=== PATIENT | male | born 1985 | race Caucasian/White ===

== ENCOUNTER → 2018-01-03 19:24 | Outpatient (CLI) | payer MEDICAID, SELFPAY | PROVIDERS: Family Provider Student in an Organized Health Care Education/Training Program; PCP Student in an Organized Health Care Education/Training Program; Visit Provider Family Medicine | DX: G47.30 Sleep apnea, unspecified (principal); G47.10 Hypersomnia, unspecified; R53.83 Other fatigue; R06.83 Snoring | CPT/HCPCS: 95810 ==

== ENCOUNTER → 2018-07-30 13:48 | Outpatient (CLI) | payer MEDICAID, SELFPAY ==
--- NOTE | 2018-07-30 13:50 | US_ITS ---
STUDY: SOFT TISSUE ULTRASOUND REASON FOR EXAM: Male, 33 years old. Left neck palpable lump TECHNIQUE: Ultrasound evaluation of the neck soft tissue was performed with real-time and static brumfield-scale imaging. COMPARISON: None. FINDINGS: Images of the left either of the neck along the mandible demonstrate a subcentimeter lymph node. No other abnormality or collection.. US/Head/Neck Soft Tissue IMPRESSION: No mass or collection is noted in the area of concern. Electronically Signed: Drake Hagan DO at 0:01 EST Tel [phone], Service support ,
--- OUTSIDE RECORDS SUMMARY | 2018-11-01 05:10 | XMS RPT_ITS ---
:1985 Author Organization OH[facility] Care Team Providers Name Role Phone JANIS MOJICA (SHANE) Attending Unavailable DANIELLE SPARKS (FEL) Referring Unavailable JANIS MOJICA (PA) Referring Unavailable ZARA SPARKSSSICA (FEL) Referring Unavailable FESCATIE DANIELLE (FEL) Attending Unavailable KRISTI DANIELLE (FEL) Referring Unavailable JANIS MOJICA (SHANE) Attending Unavailable KRISTI DANIELLE (FEL) Attending Unavailable ZARA SPARKSSSICA (FEL) Referring Unavailable LUCIANO AGGARWAL Attending Unavailable JANIS MOJICA (SHANE) Referring Unavailable NATHALIE SHARP (RN) Referring Unavailable Christian Forbes Attending Unavailable Christian Forbes Referring Unavailable Jayme Avina Primary Care Unavailable Luciano Aggarwal Attending Unavailable Jayme Avina Primary Care Unavailable MAGO LASSITER Consulting Unavailable Christian Forbes Attending Unavailable Christian Forbes Referring Unavailable Jayme Avina Primary Care Unavailable PROBLEMS PROBLEMS DATE TYPE CONDITION / CODE ATTENDING STATUS SOURCE 07/06/2018 Active 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, [place]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 / Repository G44.011(ICD-10) 01/11/2018 Active Unknown / NA Active [facility] UNK(Unknown) [place] Repository 05/13/2014 Active Obesity, NA Active [facility] unspecified / [place] E66.9(ICD-10) Repository 01/02/2018 Active Abnormal weight NA Active [facility] gain / [place] R63.5(ICD-10) Repository 12/22/2017 Active Localization-relat NA Active [facility] ed (focal) [place] (partial) Repository symptomatic epilepsy and epileptic syndromes with simple partial seizures, not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, without status epilepticus / G40.109(ICD-10) 12/22/2017 Active Unspecified NA Active [facility] convulsions / [place] R56.9(ICD-10) Repository 12/22/2017 Active Other fatigue / NA Active [facility] R53.83(ICD-10) [place] Repository 12/22/2017 Active Encounter for NA Active [facility] screening for [place] diabetes mellitus Repository / Z13.1(ICD-10) 12/22/2017 Active Encounter for Active [facility] screening for [place] lipoid disorders / Repository Z13.220(ICD-10) PROCEDURES PROCEDURES No Procedure Records FoundRESULTS RESULTS HEAD/NECK SOFT TISSUE Observed: 07/30/2018 Status: F Source: [place] 1:50 PM [facility] REPOSITORY [facility] Imaging Services [address] [place] [id number] Head/Neck Soft Tissue MR#: [id number] Acct: [id number] Name: MARY LEI Rep #: [id number] : 1985 M 33 From: Drake Hagan DO PCP: Jayme Hernandez DO Status: REG CLI Study: Head/Neck Soft Tissue Date of Exam: 07/30/18 Exam# [id number] Ordering Dr: Christian Forbes MD STUDY: SOFT TISSUE ULTRASOUND REASON FOR EXAM: Male, 33 years old. Left neck palpable lump TECHNIQUE: Ultrasound evaluation of the neck soft tissue was performed with real-time and static brumfield-scale imaging. COMPARISON: None. FINDINGS: Images of the left either of the neck along the mandible demonstrate a subcentimeter lymph node. No other abnormality or collection.. US/Head/Neck Soft Tissue IMPRESSION: No mass or collection is noted in the area of concern. Electronically Signed: Drake Hagan DO at 0:01 EST Tel [phone], Service support , CC: Gino Forbes MD; Jayme Hernandez DO Head Well Puller: Signed SARINAN Observed: 07/11/2018 Status: COMPLETED Source: [place] 12:00 AM [facility] REPOSITORY Telephone ([id number]) MARY LEI ([id number]) 1985 M Date Time Provider Department 07/11/18 NATHALIE LOPEZ)[id number] During your visit today, we recorded the following information about you: Nathalie Lopez, MSN, DOMESTIC MAID.SARINA 07/11/2018 10:[address] Sparks: Danielle Lopez ? If 6 months without seizure - sounds good! Thank you! Danielle Last seizure was 11/26/17. Component Latest Ref Rng AND Units 07/06/2018 10Hydroxycarbazepine 3.0 - 35.0 ug/mL 20.5 Will release driving restriction. Called the patient to discuss but there was no answer. Asked him to call the office back to further discuss-forms etc. Nathalie Lopez, MSN, DOMESTIC MAID.SARINA Garcia 07/11/2018 12:48 PM Signed Mary sequeira call. Please call [phone] Rafaela Shah, RN, RN 07/11/2018 1:46 PM Signed Spoke with Mary and provided Dr. Sparks's recommendation. Per Shahid, he does not have a BMV form to provide to the office. Advised Shahid that our office would prepare a form on his behalf/Dr. Sparks would sign it; it would then be forwarded to him for signing/presentation to BMV. Confirmed home mailing address. Shahid verbalizes understanding of plan/recommendation. - Forwarded completed BMV form to Dr. Sparks for review/signature. MANFRED Newman RN, RN 07/16/2018 4:29 PM Signed Original/completed BMV form forwarded to patient for signature/dating. He will need to forward original to the BMV. Copy to scanning/retained on file. Rafaela Shah RN Allergies As of Date: 07/11/2018 Noted Allergy Reaction PENICILLINS 12/30/2013 10 - Anaphylaxis SULFA (SULFONAMIDE ANTIBIOTICS) 12/30/2013 16 - Unknown Date Reviewed: 06/20/2018 Reviewed by: Luciano Aggarwal - Fully Assessed Reason for Visit: driving privileges [Other] Prescriptions as of 07/11/2018 Sig: MOMETASONE 0.1 % TOPICAL CREAM Apply to areas twice a day. * NAPROXEN 500 MG TABLET Take 1 tablet by mouth twice * OXCARBAZEPINE 300 MG TABLET Take 600 mg in the morning an* Problem List As Of Date 07/11/2018 Noted Resolved Thoracic back pain [M54.6] INVALID FOR* Obesity (BMI 30.0-34.9) [E66.9] INVALID FOR* History of scoliosis [Z87.39] INVALID FOR* Localized swelling, mass and lump, neck [R22.1] INVALID FOR* Neck pain [M54.2] INVALID FOR*05/10/2018 Convulsion (HCC) [R56.9] INVALID FOR* More... Recurrent major depression in partial remission*INVALID FOR* ELIEL (obstructive sleep apnea) [G47.33] INVALID FOR* More... More... Well adult exam [Z00.00] INVALID FOR* More... 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 Rash and nonspecific skin eruption [R21] INVALID FOR* Encounter Status:Closed by NATHALIE LOPEZ on 07/11/18 OXCARBAZEPINE Collected: 07/06/2018 Status: F Source: [place] 9:13 AM [facility] [place] REPOSITORY TYPE CODE TESTS RESULT OUT OF RANGE REFERENCE UNITS LAB 10HCAR 3.0-35.0 ug/mL 20.5 10Hydroxycar bazepine Result Comment: This test was developed and its performance characteristics determined by [facility]'s [facility] [place] ([facility]). It has not been cleared or approved by the FDA. -[facility] is regulated under CLIA as qualified to perform high-complexity testing. This test is used for clinical purposes. It should not be regarded as investigational or for research. Performed By: #### OXCARB #### [facility] [address] [place], [place] [address] PROGRESS Observed: 06/20/2018 Status: COMPLETED Source: [place] 3:23 PM [facility] REPOSITORY HNO ID: [id number] Author: Luciano Aggarwal Service: (none) Author Type: Physician Type: Progress Notes Filed: 06/20/2018 6:50 PM Note Text: Chief Complaint Patient presents with: Establish Care: physical HPI Mary Lei is a 33 year old male who presents here today for Above Complaints, WAE.. Patient with hx of convulsions and seeing Dr. Sparks in Neurology. Past Hx of major depression not on medication at this time, ELIEL but was not able to tolerate CPAP on his face, obesity. Patient has been doing ok. No current issues. Past medical history, appointments, medications, allergies reviewed. Previous Medical History PAST MEDICAL HISTORY Diagnosis Date - Convulsion (HCC) 04/04/2016 Some sound potentially epileptic, others with intact awareness raise question of nonepileptic etiology. Normal MRI, EEG. - History of scoliosis 05/13/2014 - Joint laxity of left knee since childhood per patient - Localized swelling, mass and lump, neck 06/01/2015 - Obesity (BMI 30.0-34.9) 05/13/2014 - ELIEL (obstructive sleep apnea) 02/07/2018 - Recurrent major depression in partial remission (HCC) 01/12/2018 - Thoracic back pain - Tobacco abuse Previous Surgical History PAST SURGICAL HISTORY Procedure Laterality Date - URETHRAL DILATION, MALE as a child Family History FAMILY HISTORY Problem Relation Age of Onset - other (cancer) Maternal Grandmother breast mets to bone - Skin Cancer Maternal Grandfather great - other (unknown) Father UNKNOWN - COPD Paternal Grandfather - other (pancreatic cancer) Paternal Grandfather tobacco abuse, ETOH use - other (bladder cancer) Paternal Grandfather Patient Allergies ALLERGIES Allergen Reactions - Penicillins Anaphylaxis - Sulfa (Sulfonamide * Unknown Current Medications Current Outpatient Prescriptions on File Prior to Visit: naproxen (NAPROSYN) 500 mg tablet Take 1 tablet by mouth twice daily as needed (for pain). Take with food OXcarbazepine (TRILEPTAL) 300 mg tablet Take 600 mg in the morning and 900 mg at night. No current facility-administered medications on file prior to visit. Social History Social History Marital status: Single Spouse name: Years of education: Number of children: Social History Main Topics Smoking status: Current Every Day Smoker Packs/day: 0.00 Years: 0.00 Types: Cigarettes Smokeless tobacco: Never Used Comment: E cigarette Alcohol use: Yes Comment: rare Drug use: No Sexual activity: Yes Partners with: Female Review of Symptoms REVIEW OF SYSTEMS GENERAL: No unexplained weight loss malaise or fevers HEENT: Negative for frequent or significant headaches, significant change in vision, significant vision problems, significant ear problems or hearing loss, nasal discharge, or nose bleeds, sore throat, difficulty swallowing, mouth lesions, hoarseness. Has had a sore throat recently and left ear has some pressure. Has a headache every once in awhile. NECK: Negative for lumps, goiter, pain and significant neck swelling. Has a lump behind the left ear and is tender. RESPIRATORY: Negative for cough, hemoptysis, wheezing, COPD, dyspnea or shortness of breath CARDIOVASCULAR: Negative for chest pain, leg swelling, hypertension, CHF or palpitations GI: No nausea, vomiting, or diarrhea and No heartburn or reflux symptoms : No history of dysuria, frequency or blood MUSCULOSKELETAL: Negative for joint pain or swelling, back pain or muscle pain SKIN: has a lesion on the right shine. Itchy at times. PSYCH: Negative for sleep disturbance, mood disorder and recent psychosocial stressors HEMATOLOGY/LYMPHOLOGY: Negative for prolonged bleeding, bruising easily or swollen nodes ENDOCRINE: Negative for cold or heat intolerance, polyuria, polydipsia and goiter NEURO: No history of syncope, paralysis, or tremors EXAM: BP 123/86 Pulse 96 Resp 18 Ht 180.3 cm (5' 11) Wt 123.8 kg (273 lb) BMI 38.08 kg/m? General Appearance: Well appearing, alert, in no acute distress, well-hydrated, well nourished.. Skin: Skin color, texture, turgor normal, no suspicious Lesions. Has a scaly lesion on the right anterior morales. Also has a tender nodule behind the left ear. Head: Normocephalic, no masses, lesions, tenderness or abnormalities. Eyes: Anicteric sclera. Pupils are equally round and reactive to light. Extraocular movements are intact. . Ears: External ears normal, canals clear. Nose/Sinuses: Nares normal, septum midline, mucosa normal, no drainage or sinus tenderness. Oropharynx: Lips, mucosa, and tongue normal, teeth and gums normal, oropharynx normal. Neck: Supple, no adenopathy; thyroid symmetric, normal size, no bruits. Lungs: lungs clear to auscultation. No wheezing, rhonchi, rales. Heart: RRR without murmur, gallop, or rubs. No ectopy. Abdomen: Normal abdominal exam, Abdomen soft, non-tender. Bowel sounds normal. No masses, organomegaly. Extremities: No deformities, edema, skin discoloration,. Musculoskeletal: No joint swelling, deformity, or tenderness. Peripheral Pulses: Normal. Neurologic: Gait normal. Reflexes normal and symmetric. Sensation to light touch and crainal nerves intact.. Genitalia: Normal, Penis normal. No urethral discharge. Scrotum normal to palpation. No hernia.. Health Maintenance List DTAP,TDAP,TD(1 - Tdap) due on 01/06/2004 ONE PNEUMOVAX PRIOR TO AGE 65 due on 01/06/2004 Data reviewed Component Latest Ref Rng AND Units 12/22/2017 01/02/2018 Cholesterol, Total <200 mg/dL 202 (H) Triglyceride <150 mg/dL 181 (H) HDL Cholesterol >39 mg/dL 51 LDL Cholesterol <100 mg/dL 115 (H) Non HDL Cholesterol <130 mg/dL 151 (H) Fasting Time hrs 13 VLDL Cholesterol <30 mg/dL 36 (H) TC:HDL Ratio <5.10 3.96 LDL:HDL Ratio <2.54 2.25 Hemoglobin A1C 4.3 - 5.6 % 5.0 Estimated Average Glucose mg/dL 97 TSH 0.400 - 5.500 uU/mL 2.400 Free T4 0.9 - 1.7 ng/dL 1.0 A/P ASSESSMENT/PLAN: 1. Well adult exam - ICD9: V70.0, ICD10: Z00.00 (primary diagnosis) - Recommended regular aerobic exercise. - Follow up for annual exam in one year. 2. ELIEL (obstructive sleep apnea) - ICD9: 327.23, ICD10: G47.33 - patient was not able to tolerate CPAP - Has been working on weight loss. 3. Convulsions, unspecified convulsion type (HCC) - ICD9: 780.39, ICD10: R56.9 - Cont neurology f/u 4. Recurrent major depression in partial remission (HCC) - ICD9: 296.35, ICD10: F33.41 - Doing ok without needing meds at this point 5. Obesity (BMI 30.0-34.9) - ICD9: 278.00, ICD10: E66.9 - Patient is working on weight loss 6. 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 Babin's office 7. Rash and nonspecific skin eruption - ICD9: 782.1, ICD10: R21 - Will try MOMETASONE 0.1 % TOPICAL CREAM. If not resoled patient to return for punch biopsy. F/u in a year for LARRY Aggarwal MD CNOV Observed: 06/20/2018 Status: COMPLETED Source: [place] 3:00 PM [facility] [place] REPOSITORY Office Visit (FAMPWS) MARY LEI ([id number]) 1985 M Date Time Provider Department 06/20/18 3:00 PM LUCIANO AGGARWAL During your visit today, we recorded the following information about you: Pulse Respiration Blood pressure Weight 96/minute 18/minute 123/86 123.8 kg Height 1.803 m Luciano Aggarwal MD 06/20/2018 6:50 PM Signed Chief Complaint Patient presents with: Establish Care: physical HPI Mary Lei is a 33 year old male who presents here today for Above Complaints, WAE.. Patient with hx of convulsions and seeing Dr. Sparks in Neurology. Past Hx of major depression not on medication at this time, ELIEL but was not able to tolerate CPAP on his face, obesity. Patient has been doing ok. No current issues. Past medical history, appointments, medications, allergies reviewed. Previous Medical History PAST MEDICAL HISTORY Diagnosis Date - Convulsion (HCC) 04/04/2016 Some sound potentially epileptic, others with intact awareness raise question of nonepileptic etiology. Normal MRI, EEG. - History of scoliosis 05/13/2014 - Joint laxity of left knee since childhood per patient - Localized swelling, mass and lump, neck 06/01/2015 - Obesity (BMI 30.0-34.9) 05/13/2014 - ELIEL (obstructive sleep apnea) 02/07/2018 - Recurrent major depression in partial remission (HCC) 01/12/2018 - Thoracic back pain - Tobacco abuse Previous Surgical History PAST SURGICAL HISTORY Procedure Laterality Date - URETHRAL DILATION, MALE as a child Family History FAMILY HISTORY Problem Relation Age of Onset - other (cancer) Maternal Grandmother breast mets to bone - Skin Cancer Maternal Grandfather great - other (unknown) Father UNKNOWN - COPD Paternal Grandfather - other (pancreatic cancer) Paternal Grandfather tobacco abuse, ETOH use - other (bladder cancer) Paternal Grandfather Patient Allergies ALLERGIES Allergen Reactions - Penicillins Anaphylaxis - Sulfa (Sulfonamide * Unknown Current Medications Current Outpatient Prescriptions on File Prior to Visit: naproxen (NAPROSYN) 500 mg tablet Take 1 tablet by mouth twice daily as needed (for pain). Take with food OXcarbazepine (TRILEPTAL) 300 mg tablet Take 600 mg in the morning and 900 mg at night. No current facility-administered medications on file prior to visit. Social History Social History Marital status: Single Spouse name: Years of education: Number of children: Social History Main Topics Smoking status: Current Every Day Smoker Packs/day: 0.00 Years: 0.00 Types: Cigarettes Smokeless tobacco: Never Used Comment: E cigarette Alcohol use: Yes Comment: rare Drug use: No Sexual activity: Yes Partners with: Female Review of Symptoms REVIEW OF SYSTEMS GENERAL: No unexplained weight loss malaise or fevers HEENT: Negative for frequent or significant headaches, significant change in vision, significant vision problems, significant ear problems or hearing loss, nasal discharge, or nose bleeds, sore throat, difficulty swallowing, mouth lesions, hoarseness. Has had a sore throat recently and left ear has some pressure. Has a headache every once in awhile. NECK: Negative for lumps, goiter, pain and significant neck swelling. Has a lump behind the left ear and is tender. RESPIRATORY: Negative for cough, hemoptysis, wheezing, COPD, dyspnea or shortness of breath CARDIOVASCULAR: Negative for chest pain, leg swelling, hypertension, CHF or palpitations GI: No nausea, vomiting, or diarrhea and No heartburn or reflux symptoms : No history of dysuria, frequency or blood MUSCULOSKELETAL: Negative for joint pain or swelling, back pain or muscle pain SKIN: has a lesion on the right shine. Itchy at times. PSYCH: Negative for sleep disturbance, mood disorder and recent psychosocial stressors HEMATOLOGY/LYMPHOLOGY: Negative for prolonged bleeding, bruising easily or swollen nodes ENDOCRINE: Negative for cold or heat intolerance, polyuria, polydipsia and goiter NEURO: No history of syncope, paralysis, or tremors EXAM: BP 123/86 Pulse 96 Resp 18 Ht 180.3 cm (5' 11) Wt 123.8 kg (273 lb) BMI 38.08 kg/m? General Appearance: Well appearing, alert, in no acute distress, well-hydrated, well nourished.. Skin: Skin color, texture, turgor normal, no suspicious Lesions. Has a scaly lesion on the right anterior morales. Also has a tender nodule behind the left ear. Head: Normocephalic, no masses, lesions, tenderness or abnormalities. Eyes: Anicteric sclera. Pupils are equally round and reactive to light. Extraocular movements are intact. . Ears: External ears normal, canals clear. Nose/Sinuses: Nares normal, septum midline, mucosa normal, no drainage or sinus tenderness. Oropharynx: Lips, mucosa, and tongue normal, teeth and gums normal, oropharynx normal. Neck: Supple, no adenopathy; thyroid symmetric, normal size, no bruits. Lungs: lungs clear to auscultation. No wheezing, rhonchi, rales. Heart: RRR without murmur, gallop, or rubs. No ectopy. Abdomen: Normal abdominal exam, Abdomen soft, non-tender. Bowel sounds normal. No masses, organomegaly. Extremities: No deformities, edema, skin discoloration,. Musculoskeletal: No joint swelling, deformity, or tenderness. Peripheral Pulses: Normal. Neurologic: Gait normal. Reflexes normal and symmetric. Sensation to light touch and crainal nerves intact.. Genitalia: Normal, Penis normal. No urethral discharge. Scrotum normal to palpation. No hernia.. Health Maintenance List DTAP,TDAP,TD(1 - Tdap) due on 01/06/2004 ONE PNEUMOVAX PRIOR TO AGE 65 due on 01/06/2004 Data reviewed Component Latest Ref Rng AND Units 12/22/2017 01/02/2018 Cholesterol, Total <200 mg/dL 202 (H) Triglyceride <150 mg/dL 181 (H) HDL Cholesterol >39 mg/dL 51 LDL Cholesterol <100 mg/dL 115 (H) Non HDL Cholesterol <130 mg/dL 151 (H) Fasting Time hrs 13 VLDL Cholesterol <30 mg/dL 36 (H) TC:HDL Ratio <5.10 3.96 LDL:HDL Ratio <2.54 2.25 Hemoglobin A1C 4.3 - 5.6 % 5.0 Estimated Average Glucose mg/dL 97 TSH 0.400 - 5.500 uU/mL 2.400 Free T4 0.9 - 1.7 ng/dL 1.0 A/P ASSESSMENT/PLAN: 1. Well adult exam - ICD9: V70.0, ICD10: Z00.00 (primary diagnosis) - Recommended regular aerobic exercise. - Follow up for annual exam in one year. 2. ELIEL (obstructive sleep apnea) - ICD9: 327.23, ICD10: G47.33 - patient was not able to tolerate CPAP - Has been working on weight loss. 3. Convulsions, unspecified convulsion type (HCC) - ICD9: 780.39, ICD10: R56.9 - Cont neurology f/u 4. Recurrent major depression in partial remission (HCC) - ICD9: 296.35, ICD10: F33.41 - Doing ok without needing meds at this point 5. Obesity (BMI 30.0-34.9) - ICD9: 278.00, ICD10: E66.9 - Patient is working on weight loss 6. 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 Babin's office 7. Rash and nonspecific skin eruption - ICD9: 782.1, ICD10: R21 - Will try MOMETASONE 0.1 % TOPICAL CREAM. If not resoled patient to return for punch biopsy. F/u in a year for MD Luciano Mina MD 06/20/2018 3:46 PM Signed If rash on anterior right leg does not resolve in 3-4 weeks please schedule an appointment for punch biopsy. Please call office in December 2018 to schedule a Complete Physical for on or after 06/20/2019. Referring Provider: JANIS MOJICA(MARY) [[id number]] Allergies As of Date: 06/20/2018 Noted Allergy Reaction PENICILLINS 12/30/2013 10 - Anaphylaxis SULFA (SULFONAMIDE ANTIBIOTICS) 12/30/2013 16 - Unknown Date Reviewed: 06/20/2018 Reviewed by: Luciano Aggarwal - Fully Assessed Reason for Visit: Establish Care [42] Cmt: physical Primary Visit Diagnosis:Well adult exam [Z00.00] Comment:last done: 06/20/2018 Other Visit Diagnoses:ELIEL (obstructive sleep apnea) [G47.33] Convulsions, unspecified convulsion type (HCC) [R56.9] Recurrent major depression in partial remission (HCC) [F33.41] Obesity (BMI 30.0-34.9) [E66.9] 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 On for 4 days and off for 3 days. Repeat as needed.Disp: 15 gRfl: 1 CONSULT TO ENT [[id number]] Order #: [id number]: 1 Prescriptions as of 06/20/2018 Sig: NAPROXEN 500 MG TABLET Take 1 tablet by mouth twice * OXCARBAZEPINE 300 MG TABLET Take 600 mg in the morning an* MOMETASONE 0.1 % TOPICAL CREAM Apply to areas twice a day. * Problem List As Of Date 06/20/2018 Noted Resolved Thoracic back pain [M54.6] INVALID FOR* Priority: M Obesity (BMI 30.0-34.9) [E66.9] INVALID FOR* Priority: B History of scoliosis [Z87.39] INVALID FOR* Priority: M Localized swelling, mass and lump, neck [R22.1] INVALID FOR* Neck pain [M54.2] INVALID FOR*05/10/2018 Convulsion (HCC) [R56.9] INVALID FOR* Priority: B More... Recurrent major depression in partial remission*INVALID FOR* Priority: A ELIEL (obstructive sleep apnea) [G47.33] INVALID FOR* Priority: B More... More... Well adult exam [Z00.00] INVALID FOR* Priority: E More... 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 Rash and nonspecific skin eruption [R21] INVALID FOR* Other instructions from your clinician: If rash on anterior right leg does not resolve in 3-4 weeks please schedule an appointment for punch biopsy. Please call office in December 2018 to schedule a Complete Physical for on or after 06/20/2019. Prescriptions ordered this encounter Disp Refills Start End MOMETASONE 0.1 % TOPICAL CREAM 15 g 1 06/20/2018 Sig: Apply to areas twice a day. On for 4 days and off for 3 days. Repeat as needed. Disposition: Return in about 1 year (around 06/20/2019) for complete PE. Follow-up and Disposition History Recorded Encounter Status:Closed by LUCIANO AGGARWAL on 06/20/18 PROGRESS Observed: 05/10/2018 Status: COMPLETED Source: [place] 2:22 PM [facility] REPOSITORY HNO ID: [id number] Author: Nathalie Lopez Service: (none) Author Type: Nurse Practitioner Type: Progress Notes Filed: 05/10/2018 3:38 PM Note Text: [facility] [place] [facility] CLINIC NOTE -FOLLOW UP CHIEF COMPLAINT: Patient presents with: Follow Up HISTORY SINCE LAST VISIT: The patient has returned for follow-up regarding. This is a 33 yo RHM who was last seen by Dr. Danielle Sparks on 01/11/18 and has been diagnosed with having seizures since 04/04/16. He has been on OXC 600/900 mg and there are no complaints of side effects related to this medication. He is accompanied by his camille. His last seizure was in November 26, 2017. He reports that he has had recent headaches and dizzy spells. He has had headaches intermittently for the last few years. He states they are increasing in frequency and intensity. He is having occipital headaches and will take Tylenol which only takes the edge off. Bad headaches are once a month and the smaller ones are 1-2 times a week. Massages do not work. Dizzy spells started about 1.5 months. He states that his memory loss got really bad in August. His confirms that it has gotten better recently. 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 MOOD: Good. Denies SI/SA. Will have depression; in 2012 his son was stillborn and still is upset about that. SLEEP: 3-4 hours a night. Tried Melatonin but doesn't work. Wants to see a counselor for anxiety. Most times has trouble staying asleep and intermittently has issues with falling asleep. Lives with his kirti and 2 children (3AND7). PRIOR ANTICONVULSANT HISTORY: LEV (mood issues), VPA (bad moods) , OXC (tired) MEDICATIONS: Current Outpatient Prescriptions: naproxen (NAPROSYN) 500 mg tablet Take 1 tablet by mouth twice daily as needed (for pain). Take with food OXcarbazepine (TRILEPTAL) 300 mg tablet Take 600 mg in the morning and 900 mg at night. No current facility-administered medications for this visit. PAST MEDICAL HISTORY: PAST MEDICAL HISTORY Diagnosis Date - Joint laxity of left knee since childhood per patient - Thoracic back pain - Tobacco abuse PAST SURGICAL HISTORY: PAST SURGICAL HISTORY Procedure Laterality Date - URETHRAL DILATION, MALE as a child FAMILY MEDICAL HISTORY: FAMILY HISTORY Problem Relation Age of Onset - other (cancer [Other]) Maternal Grandmother breast mets to bone - Skin Cancer Maternal Grandfather great - other (unknown [Other]) Father UNKNOWN - other (pancreatic cancer [Other]) Paternal Grandfather tobacco abuse, ETOH use - other (bladder cancer [Other]) Paternal Grandfather - COPD Paternal Grandfather SOCIAL HISTORY: Social History Marital status: Single Spouse name: Years of education: Number of children: Social History Main Topics Smoking status: Current Every Day Smoker Packs/day: 0.00 Years: 0.00 Types: Cigarettes Smokeless tobacco: Never Used Comment: E cigarette Alcohol use: Yes Comment: rare Drug use: No Sexual activity: Yes Partners with: Female REVIEW OF SYSTEMS: PAIN ASSESSMENT: Chronic neck and back pain. GENERAL: No weight loss, malaise or fevers RESPIRATORY: Negative for cough, hemoptysis, wheezing, COPD, dyspnea or shortness of breath CARDIOVASCULAR: Negative for chest pain, leg swelling, hypertension, CHF or palpitations PSYCH: +sleep issues/ mood issues ENDOCRINE: Negative for cold or heat intolerance, polyuria, polydipsia and goiter NEURO: Recent headaches, +seizures, denies tremors/paralysis. GENERAL EXAMINATION: BP 133/80 Pulse 83 Temp 36.8 ?C (98.2 ?F) (Oral) Resp 20 Ht 180.3 cm (5' 11) Wt 122.5 kg (270 lb) SpO2 96% BMI 37.66 kg/m? General Appearance: This is an obese built male. HEENT: This is no facial dysmorphic features. SKIN: There is no stigmata for neurocutaneous disorders. Neck: The neck is supple. Spine: The spine is non tender to palpation. Extremities: There is no clubbing, cyanosis, pallor or edema. NEUROLOGICAL EXAMINATION: The pupils were 2 mm symmetrical, round, and reactive to light and accommodation. The visual luna were intact to confrontation. The ocular ductions were full with no evidence for gaze evoked nystagmus. There was no evidence for facial asymmetry. Muscle tone was normal and there was no evidence for pronator drift. There is no focal weakness. There was no evidence for postural or action tremor. There was no dysmetria found on ujjffy-ousb-xrighm testing. There was no evidence for sensory deficits on examination. The gait examination was normal. RELEVANT LABS AND TEST: Component Latest Ref Rng AND Units 12/22/2017 10Hydroxycarbazepine 3.0 - 35.0 ug/mL 15.2 -MRI brain w/o (04/21/16): Normal -CT brain w/o (04/04/16 [facility]): Normal IMPRESSION: This is a 33 yo M with a history of seizures that started 04/04/16. He was previously on LEV and VPA and developed worsening mood. He is now doing well on monotherapy OXC 600/900 mg with no seizures since mid November 2017. He still struggles with sleep, continues to have headaches and some dizziness (likely from the headaches). Not admitting to having severe ELIEL and does not wear a CPAP. Poor sleep hygiene. Reports intermittent depression. Likely that headaches are caused from stress, and lack of sleep. PLAN: -Continue taking OXC 600/900 mg (no refills needed at this time) -Start taking Naproxen 500 mg bid as needed for headaches (no refills will be issued) -LABS: OXC (to be drawn in mid-June) -F/U with headache/pain clinic near his home for treatment of headaches -F/U with counselor for anxiety -RTC in 6 months The following issues were discussed with the patient: no bathing, no swimming unsupervised, no driving, no use of heavy machinery, no use of sharp moving objects and avoid heights Risks, benefits, side effects, and alternatives to use of Oxcarbazepine (Trileptal) were discussed with the patient. The patient and fiance' agreed with the plan as outlined above. Nathalie Lopez, MSN, DOMESTIC MAID.PORTRAIT PHOTOGRAPHER (Discussed visit with Dr. Saprks.) IRENA Observed: 05/10/2018 Status: COMPLETED Source: [place] 2:00 PM [facility] REPOSITORY Office Visit (NEEPAK) MARY LEI ([id number]) 1985 M Date Time Provider Department 05/10/18 2:00 PM DANIELLE SPARKS During your visit today, we recorded the following information about you: Temperature Pulse Respiration Blood pressure 98.2 degrees 83/minute 20/minute 133/80 Weight Height 122.5 kg 1.803 m Nathalie Lopez, MSN, DOMESTIC MAID.PORTRAIT PHOTOGRAPHER 05/10/2018 3:38 PM Signed [facility] [place] [facility] CLINIC NOTE -FOLLOW UP CHIEF COMPLAINT: Patient presents with: Follow Up HISTORY SINCE LAST VISIT: The patient has returned for follow-up regarding. This is a 33 yo RHM who was last seen by Dr. Danielle Sparks on 01/11/18 and has been diagnosed with having seizures since 04/04/16. He has been on OXC 600/900 mg and there are no complaints of side effects related to this medication. He is accompanied by his fishelley. His last seizure was in November 26, 2017. He reports that he has had recent headaches and dizzy spells. He has had headaches intermittently for the last few years. He states they are increasing in frequency and intensity. He is having occipital headaches and will take Tylenol which only takes the edge off. Bad headaches are once a month and the smaller ones are 1-2 times a week. Massages do not work. Dizzy spells started about 1.5 months. He states that his memory loss got really bad in August. His confirms that it has gotten better recently. 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 MOOD: Good. Denies SI/SA. Will have depression; in 2012 his son was stillborn and still is upset about that. SLEEP: 3-4 hours a night. Tried Melatonin but doesn't work. Wants to see a counselor for anxiety. Most times has trouble staying asleep and intermittently has issues with falling asleep. Lives with his kirti and 2 children (3AND7). PRIOR ANTICONVULSANT HISTORY: LEV (mood issues), VPA (bad moods) , OXC (tired) MEDICATIONS: Current Outpatient Prescriptions: naproxen (NAPROSYN) 500 mg tablet Take 1 tablet by mouth twice daily as needed (for pain). Take with food OXcarbazepine (TRILEPTAL) 300 mg tablet Take 600 mg in the morning and 900 mg at night. No current facility-administered medications for this visit. PAST MEDICAL HISTORY: PAST MEDICAL HISTORY Diagnosis Date - Joint laxity of left knee since childhood per patient - Thoracic back pain - Tobacco abuse PAST SURGICAL HISTORY: PAST SURGICAL HISTORY Procedure Laterality Date - URETHRAL DILATION, MALE as a child FAMILY MEDICAL HISTORY: FAMILY HISTORY Problem Relation Age of Onset - other (cancer [Other]) Maternal Grandmother breast mets to bone - Skin Cancer Maternal Grandfather great - other (unknown [Other]) Father UNKNOWN - other (pancreatic cancer [Other]) Paternal Grandfather tobacco abuse, ETOH use - other (bladder cancer [Other]) Paternal Grandfather - COPD Paternal Grandfather SOCIAL HISTORY: Social History Marital status: Single Spouse name: Years of education: Number of children: Social History Main Topics Smoking status: Current Every Day Smoker Packs/day: 0.00 Years: 0.00 Types: Cigarettes Smokeless tobacco: Never Used Comment: E cigarette Alcohol use: Yes Comment: rare Drug use: No Sexual activity: Yes Partners with: Female REVIEW OF SYSTEMS: PAIN ASSESSMENT: Chronic neck and back pain. GENERAL: No weight loss, malaise or fevers RESPIRATORY: Negative for cough, hemoptysis, wheezing, COPD, dyspnea or shortness of breath CARDIOVASCULAR: Negative for chest pain, leg swelling, hypertension, CHF or palpitations PSYCH: +sleep issues/ mood issues ENDOCRINE: Negative for cold or heat intolerance, polyuria, polydipsia and goiter NEURO: Recent headaches, +seizures, denies tremors/paralysis. GENERAL EXAMINATION: BP 133/80 Pulse 83 Temp 36.8 ?C (98.2 ?F) (Oral) Resp 20 Ht 180.3 cm (5' 11) Wt 122.5 kg (270 lb) SpO2 96% BMI 37.66 kg/m? General Appearance: This is an obese built male. HEENT: This is no facial dysmorphic features. SKIN: There is no stigmata for neurocutaneous disorders. Neck: The neck is supple. Spine: The spine is non tender to palpation. Extremities: There is no clubbing, cyanosis, pallor or edema. NEUROLOGICAL EXAMINATION: The pupils were 2 mm symmetrical, round, and reactive to light and accommodation. The visual luna were intact to confrontation. The ocular ductions were full with no evidence for gaze evoked nystagmus. There was no evidence for facial asymmetry. Muscle tone was normal and there was no evidence for pronator drift. There is no focal weakness. There was no evidence for postural or action tremor. There was no dysmetria found on uuylzn-moav-vyphzt testing. There was no evidence for sensory deficits on examination. The gait examination was normal. RELEVANT LABS AND TEST: Component Latest Ref Rng AND Units 12/22/2017 10Hydroxycarbazepine 3.0 - 35.0 ug/mL 15.2 -MRI brain w/o (04/21/16): Normal -CT brain w/o (04/04/16 [facility]): Normal IMPRESSION: This is a 33 yo M with a history of seizures that started 04/04/16. He was previously on LEV and VPA and developed worsening mood. He is now doing well on monotherapy OXC 600/900 mg with no seizures since mid November 2017. He still struggles with sleep, continues to have headaches and some dizziness (likely from the headaches). Not admitting to having severe ELIEL and does not wear a CPAP. Poor sleep hygiene. Reports intermittent depression. Likely that headaches are caused from stress, and lack of sleep. PLAN: -Continue taking OXC 600/900 mg (no refills needed at this time) -Start taking Naproxen 500 mg bid as needed for headaches (no refills will be issued) -LABS: OXC (to be drawn in mid-June) -F/U with headache/pain clinic near his home for treatment of headaches -F/U with counselor for anxiety -RTC in 6 months The following issues were discussed with the patient: no bathing, no swimming unsupervised, no driving, no use of heavy machinery, no use of sharp moving objects and avoid heights Risks, benefits, side effects, and alternatives to use of Oxcarbazepine (Trileptal) were discussed with the patient. The patient and fiance' agreed with the plan as outlined above. Nathalie Lopez, MSN, DOMESTIC MAID.PORTRAIT PHOTOGRAPHER (Discussed visit with Dr. Sparks.) Nathalie Lopez, MSN, DOMESTIC MAID.PORTRAIT PHOTOGRAPHER 05/10/2018 2:55 PM Addendum Follow- up in 6 months. Please get your Trileptal level checked in mid-June. This is the time where we will re-evaluate your driving restrictions. I prescribed 1 month of Naproxen for you to take for your headaches. If you need further refills, please contact your primary care provider. Please call a headache specialist/pain clinic near you. Remember that there is an office in [place] as well. Thank you. It was nice to meet you both. Referring Provider: DANIELLE SPARKS [[id number]] Allergies As of Date: 05/10/2018 Noted Allergy Reaction PENICILLINS 12/30/2013 10 - Anaphylaxis SULFA (SULFONAMIDE ANTIBIOTICS) 12/30/2013 16 - Unknown Date Reviewed: 05/10/2018 Reviewed by: Nathalie ([facility]) Jessica - Fully Assessed Reason for Visit: Follow Up [171] Primary Visit Diagnosis:Intractable episodic cluster headache [G44.011] Other Visit Diagnoses:Midline thoracic back pain, unspecified chronicity [M54.6] Obesity (BMI 30.0-34.9) [E66.9] History of scoliosis [Z87.39] Localized swelling, mass and lump, neck [R22.1] Convulsions, unspecified convulsion type (HCC) [R56.9] Recurrent major depression in partial remission (HCC) [F33.41] ELIEL (obstructive sleep apnea) [G47.33] Non compliance with medical treatment [Z91.19] Order(s):naproxen (NAPROSYN) 500 mg tabletTake 1 tablet by mouth twice daily as needed (for pain). Take with foodDisp: 60 tabletRfl: 0 OXCARBAZEPINE BLD [SQOXCARB] Order #: [id number] FUTURE Prescriptions as of 05/10/2018 Sig: NAPROXEN 500 MG TABLET Take 1 tablet by mouth twice * OXCARBAZEPINE 300 MG TABLET Take 600 mg in the morning an* Problem List As Of Date 05/10/2018 Noted Resolved Thoracic back pain [M54.6] INVALID FOR* Obesity (BMI 30.0-34.9) [E66.9] INVALID FOR* History of scoliosis [Z87.39] INVALID FOR* Localized swelling, mass and lump, neck [R22.1] INVALID FOR* Neck pain [M54.2] INVALID FOR*05/10/2018 Convulsion (HCC) [R56.9] INVALID FOR* More... Recurrent major depression in partial remission*INVALID FOR* ELIEL (obstructive sleep apnea) [G47.33] INVALID FOR* Non compliance with medical treatment [Z91.19] INVALID FOR* More... Other instructions from your clinician: Follow- up in 6 months. Please get your Trileptal level checked in mid-June. This is the time where we will re-evaluate your driving restrictions. I prescribed 1 month of Naproxen for you to take for your headaches. If you need further refills, please contact your primary care provider. Please call a headache specialist/pain clinic near you. Remember that there is an office in [place] as well. Thank you. It was nice to meet you both. Prescriptions ordered this encounter Disp Refills Start End NAPROXEN 500 MG TABLET 60 t* 0 05/10/2018 Cmt: Further refills must come from PCP. Route: ORAL Sig: Take 1 tablet by mouth twice daily as needed (for pain). Take with food Disposition: Return in about 6 months (around 11/07/2018). Follow-up and Disposition History Recorded Encounter Status:Closed by NATHALIE LOPEZ on 05/10/18 PROGRESS Observed: 02/07/2018 Status: COMPLETED Source: [place] 1:20 PM [facility] REPOSITORY HNO ID: [id number] Author: Chela Mojica Service: (none) Author Type: Physician Blueprinter Type: Progress Notes Filed: 02/07/2018 1:25 PM Note Text: 02/07/2018 Patient presents with: LESION, SKIN: Patient is here for spot in lower leg Results - Sleep Study SUBJECTIVE: This is a 33 year old that is here today for Above Complaints.. Rash on leg for 2 weeks. No improvement with OTC triple antibiotic. Eczema cream helps with the itch. Had sleep study but no titration study yet. Does not think he will be able to tolerate a CPAP mask and would like to discus other options PAST MEDICAL HISTORY Diagnosis Date - Joint laxity of left knee since childhood per patient - Thoracic back pain - Tobacco abuse ALLERGIES Penicillins; Sulfa (Sulfonamide Antibiotics) MEDICATIONS Current Outpatient Prescriptions: OXcarbazepine (TRILEPTAL) 300 mg tablet Take 600 mg in the morning and 900 mg at night. ketoconazole (NIZORAL) 2 % cream Apply 1 application to affected area once daily for 14 days. No current facility-administered medications for this visit. SOCIAL HISTORY Social History Marital status: Single Spouse name: Years of education: Number of children: Social History Main Topics Smoking status: Current Every Day Smoker Packs/day: 0.00 Years: 0.00 Types: Cigarettes Smokeless tobacco: Never Used Comment: E cigarette Alcohol use: Yes Comment: rare Drug use: No Sexual activity: Yes Partners with: Female REVIEW OF SYSTEMS See HPI OBJECTIVE: BP 118/88 (BP Site: Left Arm, BP Position: Sitting, BP Cuff Size: Large Adult) Pulse 84 Temp 36.7 ?C (98 ?F) (Tympanic) Resp 14 Wt 129.7 kg (286 lb) BMI 39.89 kg/m? APPEARANCE Well appearing, alert, in no acute distress, well-hydrated, well nourished. 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 Suspicious for tinea corporis ASSESSMENT/PLAN: 1. Tinea corporis - ICD9: 110.5, ICD10: B35.4 (primary diagnosis) - Treat with Ketoconazole once a day for atleast 2 weeks. - Follow up if no improvement in 1-2 weeks 2. ELIEL (obstructive sleep apnea) - ICD9: 327.23, ICD10: G47.33 Will consult sleep medicine- patient elects [facility] sleep medicine and will call to set up. - CONSULT TO SLEEP MEDICINE - ADULT JANIS MOJICA PA-C CNOV Observed: 02/07/2018 Status: COMPLETED Source: [place] 1:00 PM [facility] REPOSITORY Office Visit (FAMPWS) MARY LEI ([id number]) 1985 M Date Time Provider Department 02/07/18 1:00 PM JAYME MOJICA) FAMPWS During your visit today, we recorded the following information about you: Temperature Pulse Respiration Blood pressure 98 degrees 84/minute 14/minute 118/88 Weight 129.7 kg JANIS MOJICA PA-C 02/07/2018 1:25 PM Signed 02/07/2018 Patient presents with: LESION, SKIN: Patient is here for spot in lower leg Results - Sleep Study SUBJECTIVE: This is a 33 year old that is here today for Above Complaints.. Rash on leg for 2 weeks. No improvement with OTC triple antibiotic. Eczema cream helps with the itch. Had sleep study but no titration study yet. Does not think he will be able to tolerate a CPAP mask and would like to discus other options PAST MEDICAL HISTORY Diagnosis Date - Joint laxity of left knee since childhood per patient - Thoracic back pain - Tobacco abuse ALLERGIES Penicillins; Sulfa (Sulfonamide Antibiotics) MEDICATIONS Current Outpatient Prescriptions: OXcarbazepine (TRILEPTAL) 300 mg tablet Take 600 mg in the morning and 900 mg at night. ketoconazole (NIZORAL) 2 % cream Apply 1 application to affected area once daily for 14 days. No current facility-administered medications for this visit. SOCIAL HISTORY Social History Marital status: Single Spouse name: Years of education: Number of children: Social History Main Topics Smoking status: Current Every Day Smoker Packs/day: 0.00 Years: 0.00 Types: Cigarettes Smokeless tobacco: Never Used Comment: E cigarette Alcohol use: Yes Comment: rare Drug use: No Sexual activity: Yes Partners with: Female REVIEW OF SYSTEMS See HPI OBJECTIVE: BP 118/88 (BP Site: Left Arm, BP Position: Sitting, BP Cuff Size: Large Adult) Pulse 84 Temp 36.7 ?C (98 ?F) (Tympanic) Resp 14 Wt 129.7 kg (286 lb) BMI 39.89 kg/m? APPEARANCE Well appearing, alert, in no acute distress, well- hydrated, well nourished. 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 Suspicious for tinea corporis ASSESSMENT/PLAN: 1. Tinea corporis - ICD9: 110.5, ICD10: B35.4 (primary diagnosis) - Treat with Ketoconazole once a day for atleast 2 weeks. - Follow up if no improvement in 1-2 weeks 2. ELIEL (obstructive sleep apnea) - ICD9: 327.23, ICD10: G47.33 Will consult sleep medicine- patient elects [facility] sleep medicine and will call to set up. - CONSULT TO SLEEP MEDICINE - ADULT JANIS MOJICA PA-C Referring Provider: SELF [[id number]] Allergies As of Date: 02/07/2018 Noted Allergy Reaction PENICILLINS 12/30/2013 10 - Anaphylaxis SULFA (SULFONAMIDE ANTIBIOTICS) 12/30/2013 16 - Unknown Date Reviewed: 12/21/2017 Reviewed by: Jayme) Yunior - Fully Assessed Reason for Visit: LESION, SKIN [936] Cmt: Patient is here for spot in lower leg Results - Sleep Study [3564] Primary Visit Diagnosis:Tinea corporis [B35.4] Other Visit Diagnosis:ELIEL (obstructive sleep apnea) [G47.33] Order(s):ketoconazole (NIZORAL) 2 % creamApply 1 application to affected area once daily for 14 days.Disp: 30 gRfl: 0 CONSULT TO SLEEP MEDICINE - ADULT [[id number]] Order #: [id number]: 1 Prescriptions as of 02/07/2018 Sig: OXCARBAZEPINE 300 MG TABLET Take 600 mg in the morning an* KETOCONAZOLE 2 % TOPICAL CREAM Apply 1 application to affect* Problem List As Of Date 02/07/2018 Noted Resolved Thoracic back pain [M54.6] INVALID FOR* Obesity (BMI 30.0-34.9) [E66.9] INVALID FOR* History of scoliosis [Z87.39] INVALID FOR* Localized swelling, mass and lump, neck [R22.1] INVALID FOR* Neck pain [M54.2] INVALID FOR* Convulsion (HCC) [R56.9] INVALID FOR* More... Recurrent major depression in partial remission*INVALID FOR* ELIEL (obstructive sleep apnea) [G47.33] INVALID FOR* Prescriptions ordered this encounter Disp Refills Start End KETOCONAZOLE 2 % TOPICAL CREAM 30 g 0 02/07/2018 02/21/2018 Route: TOPICAL Sig: Apply 1 application to affected area once daily for 14 days. Encounter Status:Closed by JANIS JARQUIN on 02/07/18 CNCO Observed: 01/15/2018 Status: COMPLETED Source: [place] 12:00 AM [facility] REPOSITORY Letter Text Danielle Sparks MD [facility] [place] [address] [place] [address]/[place] [address] Appt [phone] January 15, 2018 Regarding: Mary Lei : 1985 To Whom It May Concern: I am writing regarding my patient, Mr. Lei, under my care since 08/2017. His seizures are under sufficient medical control to be able to work with seizure precautions. The restrictions remain the same as previously, he may not drive or operate heavy machinery. There is no change to the prior restrictions as filled out on the previous disability paperwork in 11/2017. Sincerely, Danielle Sparks MD CNOV Observed: 01/11/2018 Status: COMPLETED Source: [place] 2:30 PM [facility] REPOSITORY Office Visit (MERLIN) MARY LEI ([id number]) 1985 M Date Time Provider Department 01/11/18 2:30 PM DANIELLE SPARKS During your visit today, we recorded the following information about you: Pulse Blood pressure 86/minute 128/87 Danielle Sparks MD 01/12/2018 5:05 PM Signed [facility] [place] [facility] ? Patient Name: Mary Lei Date of : 1985 ? FOLLOW-UP EPILEPSY CLINIC NOTE 01/11/2018 at 1230pm ? CHIEF COMPLAINT: epilepsy ? Last seen in Epilepsy Department: 08/2017 by myself (Danielle Sparks MD) ? CLINICAL SUMMARY: Mr. Lei is a 33-year-old right-handed man followed at [facility] outpatient clinic for further management of seizures. Accompanied by fiance of 4 years and mother of his youngest son. Previously established with one clinic visit after first seizure in 04/[address] [facility]. Now following up with me since 08/2017 after seizure recurrence. ? INTERIM HISTORY: Patient was started on OXC and tolerated well for a while. He then developed a rash on his hands and chest and was concerned this was related to medication and switched to valproate. He reports his mood was very instable on valproate and also the rash continued and he realized it was related to a use of a chemical. Thus, he asked to switch back to the OXC. He has not side effectson the medication. He had one episode in the interim in which he woke up and felt sore and though the may have bit his tongue (no scar noted and nelli reports no bleeding just felt sore). Of note his was in bed at the time and did not note anything but he reports she sleeps hard. It is unclear if this occurred while on OXC or VPA. Last episode was 12/19/2017 and sounds atypical compared to those previously described - no loss of consciousness, full body shaking occurred and felt weightless, no auditory aura - which was while back on OXC. Never had isolated auditory or visual auras. No nocturnal episodes. ? Comorbidities: ? Memory/Cognition - stable ? Mood - + mild depression, no SI, reports mostly circumstantial and related to the of stillborn son. Has seen psych before and tried medication but not sure which. Previously resistant to treatment but as his has been treated he is interested in pursuing ? Chronic insomnia - tried treatments in the past though doesn't know names Functional/Social Status: ? Has taken short term disability from prior job in [place], works on cars ? Reports he is not driving ? Overall Sense of Well Being Since Last Visit: same ? REVIEW OF PRIOR HISTORY OF PRESENT ILLNESS: First seizure 04/04/2016. Per patient: he remembers driving home from work, walking into the house. He had a change in vision described as tunnel vision or loss of peripheral vision for about 2 seconds. The next thing he remembers is waking up with paramedics in his house. Per miguelina: He walked into the house normally, put food down on the table, and then stood still, not responding to his son and her. He dropped his drink on the floor. Then he turned to the left, eyes looked to the left. She helped him to the ground then whole body stiffened. He turned purple, had breathing difficulty. No TB, no UI. He woke up with mild confusion but normal speech, asking, What happened?, What's wrong? Was evaluated in ED with head CT which was unremarkable. He was prescribed Keppra and referred to neurology, but appointment was scheduled in June. He was subsequently referred to [facility]. No clear trigger. No EtOH the weekend before (04/04 was a Monday); he felt fine at work that day. Of note was after he came home from a trip to [facility]. He was treated with levetiracetam IV loading followed by 500 mg per day. After seizure he had problems with poor short term memory, gait imbalance requiring a cane, mood swings; he yelled at his fiancee which he has never done before. Patient thought all issues could be from levetiracetam, so he decided to stop it 04/21/2016; he took for approximately 3 weeks. After stopping LEV his symptoms resolved in 2-3 days. Around 1146pm on Monday08/22/2017 had seizure recurrence. Started hearing a wub wub sound in head, people talking, words no clear sounds, some music (Rock?), few seconds before losing consciousness. Fiance - both heard a loud bang and turned to left to look at door where sound came from. She noted he was staring weird and asked whats wrong responded nothing but was still and staring and she asked again and knew something was wrong when he did not respond. (He did not tell her he was hearing anything at the time). Unclear if head turned as before because he was already looking to the left. Eyes not left as with prior seizure. + tongue bite, no urinary incontinence Then he had full body convulsion. Duration 1-2 min. Reports this was more mild, not as violent shaking as last and came back more quickly. EMS came and taken to [place] ED. All blood work was okay. No CT scan. 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 Seizure risk factors: 1. 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 Family History of Seizures (no); 4. Developmental Delay (no); 5. Febrile Seizures (no); 6. TEXTILE FINISHER Tumors (no); 7. TEXTILE FINISHER Vascular Disease (no); 8. Significant Medical History (yes, premature ). ? Anticonvulsant History: -Current AEDs: ? OXC 600 mg BID -Prior AEDs: LEV 500 mg BID (short course - SI and mood worsening significant) CPA 500 mg BID (short course - reports worsening mood swings) Clinic History: 08/2017 - start OXC to 300 - 600 mg 10/2017 - ? of rash (did not resolve with discontinuation, discovered to be exposure related), switched to VPA titrated to 500 mg BID 11/2017 - patient requests to switch back to OXC - reports mood effects with VPA 12/2017 - atypical episode of convulsion without LOC rasie concern for possible PNES; OXC inc to 600-900 BID ? PREVIOUS EPILEPSY EVALUATIONS: MRI/MRA brain ([facility], 04/21/2016): Intracranial MRA: The carotid and basilar arteries as well as their visualized intracranial branches appear normal. Specifically, there is no evidence of occlusion, significant stenosis or vascular abnormality. Impression:1. Normal MR of the brain 2. Normal intracranial MRA [ no coronal FLAIR + motion artifact ] ? EEG (05/04/2016): Normal awake and asleep EEG long, sleep deprived (01/11/2018): normal awake and asleep (reviewed personally) ? CURRENT MEDICATIONS: ? Current Outpatient Prescriptions: albuterol HFA (VENTOLIN HFA) 90 mcg/actuation inhaler Inhale 2 Puffs as instructed every 4 hours as needed for Wheezing/Shortness of Breath. NAPROXEN ORAL Take by mouth. cyclobenzaprine (FLEXERIL) 10 mg tablet Take 1 tablet by mouth three times daily as needed for Muscle Spasm. diclofenac, EC, (VOLTAREN) 75 mg EC tablet Take 1 tablet by mouth twice daily. For pain/inflammation. Take with food. ? No current facility-administered medications for this visit. ? ALLERGIES Allergen Reactions - Penicillins Anaphylaxis - Sulfa (Sulfonamide * Unknown ? PAST MEDICAL HISTORY: PCP: Jayme Avina DO Insurance: Payor: JONATHON / Plan: BLUE ACCESS PPO / Product Type: PPO / -chronic back pain and knee pain -cigarette use -seizures ? Review of Systems: GENERAL: No fever, unintentional weight loss, LAD, fatigue, night sweats HEENT: + headache, no vertigo, trauma, loss of vision, photophobia, diplopia, visual hallucinations, blurriness, tinnitis, loss of hearing, dysarthria, dysphagia, hoarseness SKIN: No lesions or rashes MUSCULOSKELETAL: +chronic joint pain RESPIRATORY: No cough, dyspnea, orthopnea CARDIOVASCULAR: No chest pain, palpitations, pedal edema, clots GI: No nausea, vomiting, diarrhea, constipation, abdominal pain : No dysuria, hematuria, urgency, increased frequency, incontinence, impotence NEURO: See HPI. + seizure, no changes in sensation, weakness, balance, memory changes, headache, tremor PSYCH:+ depression,no other psychiatric disorders. ? VITAL SIGNS: BP 141/92 Pulse 95 SpO2 99% ? GENERAL EXAMINATION: General: Awake, alert, interactive, no acute distress Respiratory: no signs of respiratory distress Ext: no pedal edema ? Neurological Examination MENTAL STATUS: oriented to person, place, time, attentive, cooperative LANGUAGE: fluent, no aphasia or dysarthria, comprehension intact CRANIAL NERVES: pupils equal and reactive to light, no visual field deficits to finger counting, EOM intact and conjugate, normal facial sensation to light touch, no facial asymmetry, normal hearing to speech, no deviation on tongue protrusion MOTOR: 5/5 throughout, no arm drift, intact fine motor movements REFLEXES: deferred SENSORY: intact to light touch throughout, Romberg test negative COORDINATION: no ataxia, finger to nose normal, no tremor or abnormal movement GAIT: Normal ? IMPRESSION: Patient's history is concerning for a potential diagnosis of focal epilepsy given recent occurrence of second unprovoked seizure 08/22/2017. He reports an auditory aura before progression to unresponsiveness and convulsion. No seizure risk factors identified other than premature but otherwise uneventful . MRI and EEG normal in 2016. Repeat sleep deprived EEG with sleep normal today. He had a recent atypical episode with convulsion without loss of consciousness which raises the question of nonepileptic episodes. He does report past history of trauma and depression/insomnia which would put him at risk. Epilepsy Classification: focal epilepsy Etiology: Unknown Seizure Classification: Auditory aura -> Dialeptic seizure -> ?? Left version -> GTC seizure Convulsion without loss of consciousness Related Condition: premature , chronic back pain, cigarette use ? PLAN: - Repeat EEG long sleep deprived reviewed results with patient today - Discussed diagnosis recent episode concerning for nonepileptic etiology, patient agreeable to see his 's mental health provider to establish care given history of trauma. - We discussed if frequency of episodes increased would ideally characterize with diagnostic EMU admission, currently only ? 4 lifetime episodes. - Patient is asking for letter to extend disability. 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 He reports he has had trouble finding a job and asks about applying for disability. We discussed that his seizure frequency likely would not meet criteria. - Recent labs show level 15, no hyponatremia - Medical management: ? Increased oxcarbazepine to 600-900 mg BID ? Can increase further if tolerated and seizure recurrence (next choices would be mood neutral and affordable options such as LTG. - Education: ? Seizure precautions in place until 6 months without episode with loss of awareness. ? Counseling was provided to the patient that missed medications, addition of some new medications, use of alcohol or other substances, and sleep deprivation can lower the seizure threshold. ? Patient was explicitly advised to not drive (in compliance with [place] state law) until released by a physician (only if seizure free for 6 months). He voiced understanding. - Patient has my clinic contact information ? FOLLOW-UP: The patient was asked to follow-up in 4 months, sooner if issues arise. Discussed virtual visits and may consider. ? -Physician [id number] time was 30 minutes with > 50% devoted to counseling or co-ordination of care. Danielle Sparks MD Associate Staff Physician [facility] [place] ? Office [facility] [phone] ? cc: Primary Care Physician: Jayme Avina DO [id number] [facility] [id number] ? Referring Physician: SELF ? Patient: Mr. Mary Lei [address] [facility], [place] [address] Danielle Sparks MD 01/11/2018 1:15 PM Signed 1. Increase oxcarbazepine to 600 mg and 900 mg twice daily. 2. Follow up in 4 months Thank you for choosing the [facility] and allowing me to serve as your physician. Danielle Sparks MD Associate Staff Physician [facility] [place] Office [place] Office Here is a review of some of the things we discussed in clinic today. Since seizures are not predictable, you must avoid doing anything that might cause danger to you or others if you have another one. Therefore, until the seizures are under good control AND you are released by a physician, take these precautions. Precautions: -No driving per [place] state driving law. -No swimming or bathing alone or unless someone is present who can physically pull you out of the water should a seizure occur. Do not swim in a [place]/ocean without a life jacket. -Avoid standing over an open flame and stove. -Use dangerous household appliances with caution (iron, curling iron, sharp objects, etc) and ideally with supervision. -No using heavy machinery. -No climbing tall heights such as ladders. -Wear a helmet when riding a bike. -Always consider where you may land if you fall. -You should not perform any activity where sudden loss of awareness or consciousness would put you or those around you in, this may include certain sports or exercise. Safety: -Explain precautions and first aid to your family and friends as well as employers or schools. -Carry a card with your list of medications. -Consider wearing a medical ID bracelet. -Do not lock doors. -Do not use electrical appliances near water. -Try to use electrical rather than gas appliances when possible and use the back burners. -Avoid sleeping on stomach. -Avoid situations in which you are the only adult present to care for young children. Do not lift infants about ground level or carry infants up and down stairs. -Avoid activities that carry a high risk of sustaining head trauma such as contact sports (football, boxing, etc). Medications: !Please take your seizure medication as prescribed. Call my office before modifying the dose or stopping a medication. It does not work when taken on an as needed basis. Missing doses will increase the risk of having another seizure. If you miss a dose, take the missed dose as soon as you remember. Avoid Triggers: -Missing doses of your medication or any abrupt medications changes. Do not discontinue seizure medication on your own as this may lead to a severe seizure. Please contact the office for refills 2 weeks before your medication refill expires. -Emotional or physical stress such as an acute illness or intense activity -Sleep deprivation or change in sleeping patterns -Alcohol use (both an excessive amount or suddenly stopping after chronic use) -Substance abuse or illegal drug use -Bright or flashing lights (only for certain types of epilepsy) -Hormonal changes such as occur with menstrual cycles -Some medications make it more likely to have seizures, especially tramadol, bupropion (Wellbutrin), benadryl, lithium, and some antibiotics. Always check with your physician before starting a new medication. Tell your close friends, family, co-workers about your seizure and teach them what to do for you if it happens again. During generalized seizures with shaking or stiffening of whole body: -Do your best to stay calm and look at the clock to time the episode. -If there is a warning sign or feeling, get to a safe place (lowered down to the floor) quickly. -Look around to ensure nothing close that can cause injury. -If available, put a soft object such as a pillow or sweatshirt under the head -Loosen any tight clothing around the neck. -If possible, gently roll patient onto their side so any saliva or vomit will easily drain out of the mouth. -Do not restrain or hold down the patient as this is more likely to cause injury. -Do not put anything into the mouth. Do not put water on the face. -Stay with the person until recovered back to normal. It is normal to be very sleepy, tired and confused for minutes to a few hours, as well as to complain of headache and vomit. During seizures of staring or confusion: -Do not restrain. If walking around, gently steer away from any danger. -Remove any dangerous objects (knives, pencils, hot beverages) from hands. -Reassure the patient. -Stay with patient until fully recovered. Call if: -Any injury was sustained which requires medical attention -Seizure lasts longer than 5 minutes -Patient has back to back seizures -Patient has difficulty breathing -Patient is not returning to normal -Patient is or diabetic -If patient has been ill or had a fever before the seizure -If patient is combative or agitated after a seizure and is dangerous to themselves or others There is no need to call 9--1 if the seizure is short, without injury, typical for your seizures, and you return to baseline without further event. However, you should still notify my office of the breakthrough seizure for further non-urgent management, especially if the number or severity of seizures is more than baseline. Seizure tracking: We ask that you keep a record of the seizures that are occurring. Please do this in the way that works the best for you. We would like to know the number of seizures per day including the date of the seizures, the length of time the seizure lasts, and the intensity of the seizure. If this is a different type of seizure than what is normal, please document a description. It is also helpful for you to document other things which may affect your seizures such as medication changes, your period, missed doses of medications, or certain stressors. Also, videos are always helpful. If the seizures are changing in any way, please try to record them on video if possible. This can be done on your cell phone or via a video recorder. This will help when we meet again. For some information of keeping track of the seizures, you can visit the web site: https://www.seizuretracker.com/ You can also download [facility]'s MyEpilepsy juan through the [employer]. This free educational interactive iPad tool allows you and your physician to effectively manage your epilepsy. The interactive juan gives you the ability to: ? Keep a daily record of your seizure activity ? Provide a record and reminder of all medications ? Help manage appointments as well as track progress ? Educational information about epilepsy, treatment options, and how to manage seizures. Helpful Websites: [email or web address] [email or web address] and [email or web address] Referring Provider: DANIELLE SPARKS [[id number]] Allergies As of Date: 01/11/2018 Noted Allergy Reaction PENICILLINS 12/30/2013 10 - Anaphylaxis SULFA (SULFONAMIDE ANTIBIOTICS) 12/30/2013 16 - Unknown Date Reviewed: 12/21/2017 Reviewed by: Chela Mojica - Fully Assessed Reason for Visit: Seizures [97] Visit Diagnoses:Focal epilepsy with impairment of consciousness (HCC) [G40.109] Convulsions, unspecified convulsion type (HCC) [R56.9] 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 Other instructions from your clinician: 1. Increase oxcarbazepine to 600 mg and 900 mg twice daily. 2. Follow up in 4 months Thank you for choosing the [facility] and allowing me to serve as your physician. Danielle Sparks MD Associate Staff Physician [facility] Office [place] Office Here is a review of some of the things we discussed in clinic today. Since seizures are not predictable, you must avoid doing anything that might cause danger to you or others if you have another one. Therefore, until the seizures are under good control AND you are released by a physician, take these precautions. Precautions: -No driving per [place] state driving law. -No swimming or bathing alone or unless someone is present who can physically pull you out of the water should a seizure occur. Do not swim in a [place]/ocean without a life jacket. -Avoid standing over an open flame and stove. -Use dangerous household appliances with caution (iron, curling iron, sharp objects, etc) and ideally with supervision. -No using heavy machinery. -No climbing tall heights such as ladders. -Wear a helmet when riding a bike. -Always consider where you may land if you fall. -You should not perform any activity where sudden loss of awareness or consciousness would put you or those around you in, this may include certain sports or exercise. Safety: -Explain precautions and first aid to your family and friends as well as employers or schools. -Carry a card with your list of medications. -Consider wearing a medical ID bracelet. -Do not lock doors. -Do not use electrical appliances near water. -Try to use electrical rather than gas appliances when possible and use the back burners. -Avoid sleeping on stomach. -Avoid situations in which you are the only adult present to care for young children. Do not lift infants about ground level or carry infants up and down stairs. -Avoid activities that carry a high risk of sustaining head trauma such as contact sports (football, boxing, etc). Medications: !Please take your seizure medication as prescribed. Call my office before modifying the dose or stopping a medication. It does not work when taken on an as needed basis. Missing doses will increase the risk of having another seizure. If you miss a dose, take the missed dose as soon as you remember. Avoid Triggers: -Missing doses of your medication or any abrupt medications changes. Do not discontinue seizure medication on your own as this may lead to a severe seizure. Please contact the office for refills 2 weeks before your medication refill expires. -Emotional or physical stress such as an acute illness or intense activity -Sleep deprivation or change in sleeping patterns -Alcohol use (both an excessive amount or suddenly stopping after chronic use) -Substance abuse or illegal drug use -Bright or flashing lights (only for certain types of epilepsy) -Hormonal changes such as occur with menstrual cycles -Some medications make it more likely to have seizures, especially tramadol, bupropion (Wellbutrin), benadryl, lithium, and some antibiotics. Always check with your physician before starting a new medication. Tell your close friends, family, co-workers about your seizure and teach them what to do for you if it happens again. During generalized seizures with shaking or stiffening of whole body: -Do your best to stay calm and look at the clock to time the episode. -If there is a warning sign or feeling, get to a safe place (lowered down to the floor) quickly. -Look around to ensure nothing close that can cause injury. -If available, put a soft object such as a pillow or sweatshirt under the head -Loosen any tight clothing around the neck. -If possible, gently roll patient onto their side so any saliva or vomit will easily drain out of the mouth. -Do not restrain or hold down the patient as this is more likely to cause injury. -Do not put anything into the mouth. Do not put water on the face. -Stay with the person until recovered back to normal. It is normal to be very sleepy, tired and confused for minutes to a few hours, as well as to complain of headache and vomit. During seizures of staring or confusion: -Do not restrain. If walking around, gently steer away from any danger. -Remove any dangerous objects (knives, pencils, hot beverages) from hands. -Reassure the patient. -Stay with patient until fully recovered. Call if: -Any injury was sustained which requires medical attention -Seizure lasts longer than 5 minutes -Patient has back to back seizures -Patient has difficulty breathing -Patient is not returning to normal -Patient is or diabetic -If patient has been ill or had a fever before the seizure -If patient is combative or agitated after a seizure and is dangerous to themselves or others There is no need to call if the seizure is short, without injury, typical for your seizures, and you return to baseline without further event. However, you should still notify my office of the breakthrough seizure for further non-urgent management, especially if the number or severity of seizures is more than baseline. Seizure tracking: We ask that you keep a record of the seizures that are occurring. Please do this in the way that works the best for you. We would like to know the number of seizures per day including the date of the seizures, the length of time the seizure lasts, and the intensity of the seizure. If this is a different type of seizure than what is normal, please document a description. It is also helpful for you to document other things which may affect your seizures such as medication changes, your period, missed doses of medications, or certain stressors. Also, videos are always helpful. If the seizures are changing in any way, please try to record them on video if possible. This can be done on your cell phone or via a video recorder. This will help when we meet again. For some information of keeping track of the seizures, you can visit the web site: https://www.seizuretracker.com/ You can also download [facility]'s MyEpilepsy juan through the [employer]. This free educational interactive iPad tool allows you and your physician to effectively manage your epilepsy. The interactive juan gives you the ability to: ? Keep a daily record of your seizure activity ? Provide a record and reminder of all medications ? Help manage appointments as well as track progress ? Educational information about epilepsy, treatment options, and how to manage seizures. Helpful Websites: [email or web address] [employer] [email or web address] Prescriptions ordered this encounter Disp Refills Start End OXCARBAZEPINE 300 MG TABLET 450 * 2 01/11/2018 Sig: Take 600 mg in the morning and 900 mg at night. Medications Discontinued During This Encounter OXcarbazepine (TRILEPTAL) 300 mg tab* 120 * 5 11/15/2017 01/11/2018 Route: ORAL Sig: Take 2 tablets by mouth twice daily. Disc: Reason for discontinue is not on file. Disposition: Return in about 4 months (around 05/13/2018). Follow-up and Disposition History Recorded Encounter Status:Closed by DANIELLE SPARKS MD on 01/12/18 PROGRESS Observed: 01/11/2018 Status: COMPLETED Source: [place] 12:43 PM [facility] [place] REPOSITORY O ID: [id number] Author: Danielle Sparks Service: (none) Author Type: Physician Type: Progress Notes Filed: 01/12/2018 5:05 PM Note Text: [facility] [place] [facility] ? Patient Name: Mary Lei Date of : 1985 ? FOLLOW-UP EPILEPSY CLINIC NOTE 01/11/2018 at 1230pm ? CHIEF COMPLAINT: epilepsy ? Last seen in Epilepsy Department: 08/2017 by myself (Danielle Sparks MD) ? CLINICAL SUMMARY: Mr. Lei is a 33-year-old right-handed man followed at [facility] outpatient clinic for further management of seizures. Accompanied by fiance of 4 years and mother of his youngest son. Previously established with one clinic visit after first seizure in 04/[address] [facility]. Now following up with me since 08/2017 after seizure recurrence. ? INTERIM HISTORY: Patient was started on OXC and tolerated well for a while. He then developed a rash on his hands and chest and was concerned this was related to medication and switched to valproate. He reports his mood was very instable on valproate and also the rash continued and he realized it was related to a use of a chemical. Thus, he asked to switch back to the OXC. He has not side effectson the medication. He had one episode in the interim in which he woke up and felt sore and though the may have bit his tongue (no scar noted and jefferydhara reports no bleeding just felt sore). Of note his was in bed at the time and did not note anything but he reports she sleeps hard. It is unclear if this occurred while on OXC or VPA. Last episode was 12/19/2017 and sounds atypical compared to those previously described - no loss of consciousness, full body shaking occurred and felt weightless, no auditory aura - which was while back on OXC. Never had isolated auditory or visual auras. No nocturnal episodes. ? Comorbidities: ? Memory/Cognition - stable ? Mood - + mild depression, no SI, reports mostly circumstantial and related to the of stillborn son. Has seen psych before and tried medication but not sure which. Previously resistant to treatment but as his has been treated he is interested in pursuing ? Chronic insomnia - tried treatments in the past though doesn't know names Functional/Social Status: ? Has taken short term disability from prior job in [place], works on cars ? Reports he is not driving ? Overall Sense of Well Being Since Last Visit: same ? REVIEW OF PRIOR HISTORY OF PRESENT ILLNESS: First seizure 04/04/2016. Per patient: he remembers driving home from work, walking into the house. He had a change in vision described as tunnel vision or loss of peripheral vision for about 2 seconds. The next thing he remembers is waking up with paramedics in his house. Per fiancee: He walked into the house normally, put food down on the table, and then stood still, not responding to his son and her. He dropped his drink on the floor. Then he turned to the left, eyes looked to the left. She helped him to the ground then whole body stiffened. He turned purple, had breathing difficulty. No TB, no UI. He woke up with mild confusion but normal speech, asking, What happened?, What's wrong? Was evaluated in ED with head CT which was unremarkable. He was prescribed Keppra and referred to neurology, but appointment was scheduled in June. He was subsequently referred to [facility]. No clear trigger. No EtOH the weekend before (04/04 was a Monday); he felt fine at work that day. Of note was after he came home from a trip to [facility]. He was treated with levetiracetam IV loading followed by 500 mg per day. After seizure he had problems with poor short term memory, gait imbalance requiring a cane, mood swings; he yelled at his fiancee which he has never done before. Patient thought all issues could be from levetiracetam, so he decided to stop it 04/21/2016; he took for approximately 3 weeks. After stopping LEV his symptoms resolved in 2-3 days. Around 1146pm on Monday08/22/2017 had seizure recurrence. Started hearing a wub wub sound in head, people talking, words no clear sounds, some music (Rock?), few seconds before losing consciousness. Fiance - both heard a loud bang and turned to left to look at door where sound came from. She noted he was staring weird and asked whats wrong responded nothing but was still and staring and she asked again and knew something was wrong when he did not respond. (He did not tell her he was hearing anything at the time). Unclear if head turned as before because he was already looking to the left. Eyes not left as with prior seizure. + tongue bite, no urinary incontinence Then he had full body convulsion. Duration 1-2 min. Reports this was more mild, not as violent shaking as last and came back more quickly. EMS came and taken to [place] ED. All blood work was okay. No CT scan. 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 Seizure risk factors: 1. 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 Family History of Seizures (no); 4. Developmental Delay (no); 5. Febrile Seizures (no); 6. TEXTILE FINISHER Tumors (no); 7. TEXTILE FINISHER Vascular Disease (no); 8. Significant Medical History (yes, premature ). ? Anticonvulsant History: -Current AEDs: ? OXC 600 mg BID -Prior AEDs: LEV 500 mg BID (short course - SI and mood worsening significant) CPA 500 mg BID (short course - reports worsening mood swings) Clinic History: 08/2017 - start OXC to 300 - 600 mg 10/2017 - ? of rash (did not resolve with discontinuation, discovered to be exposure related), switched to VPA titrated to 500 mg BID 11/2017 - patient requests to switch back to OXC - reports mood effects with VPA 12/2017 - atypical episode of convulsion without LOC rasie concern for possible PNES; OXC inc to 600-900 BID ? PREVIOUS EPILEPSY EVALUATIONS: MRI/MRA brain ([facility], 04/21/2016): Intracranial MRA: The carotid and basilar arteries as well as their visualized intracranial branches appear normal. Specifically, there is no evidence of occlusion, significant stenosis or vascular abnormality. Impression:1. Normal MR of the brain 2. Normal intracranial MRA [ no coronal FLAIR + motion artifact ] ? EEG (05/04/2016): Normal awake and asleep EEG long, sleep deprived (01/11/2018): normal awake and asleep (reviewed personally) ? CURRENT MEDICATIONS: ? Current Outpatient Prescriptions: albuterol HFA (VENTOLIN HFA) 90 mcg/actuation inhaler Inhale 2 Puffs as instructed every 4 hours as needed for Wheezing/Shortness of Breath. NAPROXEN ORAL Take by mouth. cyclobenzaprine (FLEXERIL) 10 mg tablet Take 1 tablet by mouth three times daily as needed for Muscle Spasm. diclofenac, EC, (VOLTAREN) 75 mg EC tablet Take 1 tablet by mouth twice daily. For pain/inflammation. Take with food. ? No current facility-administered medications for this visit. ? ALLERGIES Allergen Reactions - Penicillins Anaphylaxis - Sulfa (Sulfonamide * Unknown ? PAST MEDICAL HISTORY: PCP: Jayme Avina DO Insurance: Payor: JONATHON / Plan: BLUE ACCESS PPO / Product Type: PPO / -chronic back pain and knee pain -cigarette use -seizures ? Review of Systems: GENERAL: No fever, unintentional weight loss, LAD, fatigue, night sweats HEENT: + headache, no vertigo, trauma, loss of vision, photophobia, diplopia, visual hallucinations, blurriness, tinnitis, loss of hearing, dysarthria, dysphagia, hoarseness SKIN: No lesions or rashes MUSCULOSKELETAL: +chronic joint pain RESPIRATORY: No cough, dyspnea, orthopnea CARDIOVASCULAR: No chest pain, palpitations, pedal edema, clots GI: No nausea, vomiting, diarrhea, constipation, abdominal pain : No dysuria, hematuria, urgency, increased frequency, incontinence, impotence NEURO: See HPI. + seizure, no changes in sensation, weakness, balance, memory changes, headache, tremor PSYCH:+ depression,no other psychiatric disorders. ? VITAL SIGNS: BP 141/92 Pulse 95 SpO2 99% ? GENERAL EXAMINATION: General: Awake, alert, interactive, no acute distress Respiratory: no signs of respiratory distress Ext: no pedal edema ? Neurological Examination MENTAL STATUS: oriented to person, place, time, attentive, cooperative LANGUAGE: fluent, no aphasia or dysarthria, comprehension intact CRANIAL NERVES: pupils equal and reactive to light, no visual field deficits to finger counting, EOM intact and conjugate, normal facial sensation to light touch, no facial asymmetry, normal hearing to speech, no deviation on tongue protrusion MOTOR: 5/5 throughout, no arm drift, intact fine motor movements REFLEXES: deferred SENSORY: intact to light touch throughout, Romberg test negative COORDINATION: no ataxia, finger to nose normal, no tremor or abnormal movement GAIT: Normal ? IMPRESSION: Patient's history is concerning for a potential diagnosis of focal epilepsy given recent occurrence of second unprovoked seizure 08/22/2017. He reports an auditory aura before progression to unresponsiveness and convulsion. No seizure risk factors identified other than premature but otherwise uneventful . MRI and EEG normal in 2016. Repeat sleep deprived EEG with sleep normal today. He had a recent atypical episode with convulsion without loss of consciousness which raises the question of nonepileptic episodes. He does report past history of trauma and depression/insomnia which would put him at risk. Epilepsy Classification: focal epilepsy Etiology: Unknown Seizure Classification: Auditory aura -> Dialeptic seizure -> ?? Left version -> GTC seizure Convulsion without loss of consciousness Related Condition: premature , chronic back pain, cigarette use ? PLAN: - Repeat EEG long sleep deprived reviewed results with patient today - Discussed diagnosis recent episode concerning for nonepileptic etiology, patient agreeable to see his 's mental health provider to establish care given history of trauma. - We discussed if frequency of episodes increased would ideally characterize with diagnostic EMU admission, currently only ? 4 lifetime episodes. - Patient is asking for letter to extend disability. 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 He reports he has had trouble finding a job and asks about applying for disability. We discussed that his seizure frequency likely would not meet criteria. - Recent labs show level 15, no hyponatremia - Medical management: ? Increased oxcarbazepine to 600-900 mg BID ? Can increase further if tolerated and seizure recurrence (next choices would be mood neutral and affordable options such as LTG. - Education: ? Seizure precautions in place until 6 months without episode with loss of awareness. ? Counseling was provided to the patient that missed medications, addition of some new medications, use of alcohol or other substances, and sleep deprivation can lower the seizure threshold. ? Patient was explicitly advised to not drive (in compliance with [place] state law) until released by a physician (only if seizure free for 6 months). He voiced understanding. - Patient has my clinic contact information ? FOLLOW-UP: The patient was asked to follow-up in 4 months, sooner if issues arise. Discussed virtual visits and may consider. ? -Physician [id number] time was 30 minutes with > 50% devoted to counseling or co-ordination of care. Danielle Sparks MD Associate Staff Physician [facility] ? Office Appointments [phone] ? cc: Primary Care Physician: Jayme Avina DO [id number] [id number] ? Referring Physician: SELF ? Patient: Mr. Mary Lei [address] [facility] [facility], [place] [address] TSH Collected: 01/02/2018 Status: F Source: [place] 12:41 PM [facility] REPOSITORY TYPE CODE TESTS RESULT OUT OF RANGE REFERENCE UNITS LAB TSH 0.400-5.500 uU/mL TSH 2.400 Performed By: #### TSH, FT4 #### [facility] [address] [place], [place] [address] FREE T4 Collected: 01/02/2018 Status: F Source: [place] 12:41 PM [facility] REPOSITORY TYPE CODE TESTS RESULT OUT OF RANGE REFERENCE UNITS LAB FT4 0.9-1.7 ng/dL Free T4 1.0 Performed By: #### TSH, FT4 #### [facility] [address] [place], [place] [address] [facility] Observed: 12/27/2017 Status: COMPLETED Source: [place] 12:00 AM [facility] REPOSITORY [facility] MARY LEI ([id number]) 1985 M Date Time Provider Department 12/27/17 JAYME MOJICA[facility] During your visit today, we recorded the following information about you: Maribel De La Fuente Ashwini BELTRAN 12/27/2017 2:40 PM Signed Negar with [facility] PH: [phone] OPT 1, They were sent 2 different orders 1 for Complete Home workup and the 2nd order was for In house study. Which do you want the patient to have done. Scheduled for 01-03-18 for in house study. Also need to have a different code with hypersomnia or sleep apnea unspecified. Please get this information back to them as soon as possible. JANIS MOJICA PA-C 12/27/2017 3:38 PM Addendum I only placed one order?? In house study is fine. See other phone note in which updated dx codes were added. MARY Torres Ma 12/27/2017 3:24 PM Signed Order has been faxed to [facility]. Gopal Hammond Ma Allergies As of Date: 12/27/2017 Noted Allergy Reaction PENICILLINS 12/30/2013 10 - Anaphylaxis SULFA (SULFONAMIDE ANTIBIOTICS) 12/30/2013 16 - Unknown Date Reviewed: 12/21/2017 Reviewed by: Chela Mojica - Fully Assessed Reason for Visit: clarification [Other] Prescriptions as of 12/27/2017 Sig: OXCARBAZEPINE 300 MG TABLET Take 2 tablets by mouth twice* Problem List As Of Date 12/27/2017 Noted Resolved Thoracic back pain [M54.6] INVALID FOR* Obesity (BMI 30.0-34.9) [E66.9] INVALID FOR* History of scoliosis [Z87.39] INVALID FOR* Localized swelling, mass and lump, neck [R22.1] INVALID FOR* Neck pain [M54.2] INVALID FOR* Convulsion (HCC) [R56.9] INVALID FOR* More... Encounter Status:Closed by GOPAL HAMMOND MA on 12/27/17 HEMOGLOBIN A1C Collected: 12/22/2017 Status: F Source: [place] 10:07 AM [facility] REPOSITORY TYPE CODE TESTS RESULT OUT OF REFERENCE UNITS RANGE LAB HGBA1C 4.3-5.6 % Hemoglobin A1c 5.0 LAB HBA0 mg/dL Est. Average Glucose 97 Result Comment: eAG: (Estimated average glucose) is a calculated value from HgbA1c and is bottling equipment sales representative of the average blood glucose level in the last 2-3 month period. Performed By: #### HBA1C, LIPB #### [facility] [address] [place] [address] LIPID PANEL, BASIC Collected: 12/22/2017 Status: F Source: [place] 10:07 AM [facility] REPOSITORY TYPE CODE TESTS RESULT OUT OF REFERENCE UNITS RANGE LAB CHOL <200 mg/dL Cholesterol High 202 Result Comment: <200 mg/dL, Desirable 200-239 mg/dL, Borderline high >239 mg/dL, High LAB TRIGLY <150 mg/dL Triglyceride High 181 Result Comment: <150 mg/dL, Normal 150-199 mg/dL, Borderline high 200-499 mg/dL, High >499 mg/dL, Very high LAB HDL >39 mg/dL HDL-Cholesterol 51 Result Comment: 40-59 mg/dL, Acceptable >59 mg/dL, High: Negative risk factor for coronary heart disease <40 mg/dL, Low: Positive risk factor for coronary heart disease LAB LDL <100 mg/dL LDL-Cholesterol High 115 Result Comment: <100 mg/dL, Optimal 100-129 mg/dL, Near optimal/above optimal 130-159 mg/dL, Borderline high 160-189 mg/dL, High >189 mg/dL, Very high Secondary prevention optimal LDL Cholesterol levels are recommended to be < 70 mg/dL LAB NONHDL <130 mg/dL Non HDL High Cholesterol 151 Result Comment: <130 mg/dL, Optimal 130-159 mg/dL, Near optimal/above optimal 160-189 mg/dL, Borderline high 190-219 mg/dL, High >219 mg/dL, Very high Secondary prevention optimal non HDL Cholesterol levels are recommended to be < 100 mg/dL LAB FT hrs Fasting Time 13 LAB VLDL <30 mg/dL High VLDL Cholesterol 36 LAB TCHDL <5.10 TC:HDL Ratio 3.96 LAB LDLHDL <2.54 LDL:HDL Ratio 2.25 Result Comment: Reference: 1. National Cholesterol Education Program ATP III Guideline At-A-Glance Quick Desk Reference: National Heart, Lung, and Blood [place]. National Institutes of Health. 2001: NIH Publication No. 01-3305. 2. An International Atherosclerosis Society position paper: global recommendations for the management of dyslipidemia: executive summary, Atherosclerosis. 2014: 232(2):410-413. Performed By: #### HBA1C, LIPB #### [facility] [address] [place], [place] [address] CBC AND DIFFERENTIAL Collected: 12/22/2017 Status: F Source: [place] 10:06 [facility] REPOSITORY TYPE CODE TESTS RESULT OUT OF REFERENCE UNITS RANGE LAB WBC 3.70-11.00 k/uL WBC 6.04 LAB RBC 4.20-6.00 m/uL RBC 5.90 LAB HGB 13.0-17.0 g/dL High Hemoglobin 17.1 LAB HCT 39.0-51.0 % Hematocrit 49.8 LAB MCV 80.0-100.0 fL MCV 84.4 LAB MCH 26.0-34.0 pG MCH 29.0 LAB MCHC 30.5-36.0 g/dL MCHC 34.3 LAB RDWCV 11.5-15.0 % RDW-CV 12.4 LAB PLTCT 150-400 k/uL Platelet Count 212 LAB MPV 9.0-12.7 fL MPV 9.9 LAB ANEUT % Neut% 51.8 LAB AANEUT 1.45-7.50 k/uL Abs Neut 3.11 LAB ALYMP % Lymph% 38.2 LAB AALYMP 1.00-4.00 k/uL Abs Lymph 2.31 LAB AMONO % [place]% 7.5 LAB AAMONO <0.87 k/uL Abs [place] 0.45 LAB AEOS % Eosin% 2.0 LAB AAEOS <0.46 k/uL Abs Eosin 0.12 LAB ABASO % Baso% 0.5 LAB AABASO <0.11 k/uL Abs Baso 0.03 LAB AUNRBC 0 /100 WBC NRBCs 0.0 LAB ABNRBC <0.01 k/uL Absolute nRBC <0.01 LAB DTYP DTYPE Auto Diff Performed By: #### CBCDIF, VPA, CMP, OXCARB #### [facility] [address] [place] [address] VALPROIC ACID Collected: 12/22/2017 Status: F Source: [place] 10:06 AM [facility] REPOSITORY TYPE CODE TESTS RESULT OUT OF REFERENCE UNITS RANGE LAB VPA 50-100 ug/mL Low Valproic Acid <2.8 Result Comment: Reference ranges and high/low indicator flags are provided as general guidelines only. The treating physician must determine appropriate target levels/dosing based on the specific clinical situation. Performed By: #### CBCDIF, VPA, CMP, OXCARB #### [facility] [address] [place] [address] COMP METABOLIC PANEL Collected: 12/22/2017 Status: F Source: [place] 10:06 AM [facility] REPOSITORY TYPE CODE TESTS RESULT OUT OF REFERENCE UNITS RANGE LAB TP 6.3-8.0 g/dL Protein, Total 7.3 LAB ALB 3.9-4.9 g/dL Albumin 4.4 LAB CA 8.5-10.2 mg/dL Calcium, Total 9.2 LAB TBIL 0.2-1.3 mg/dL Bilirubin, Total 0.3 LAB ALKP 36-108 U/L Alkaline Phosphatase 55 LAB AST 14-40 U/L AST 29 LAB GLU 74-99 mg/dL Glucose 89 Result Comment: The [place] Diabetes Association (ADA) provides guidance for cutoff values for fasting glucose and random glucose. The ADA defines fasting as no caloric intake for at least 8 hours. Fas ting plasma glucose results between 100 to 125 mg/dL indicate increased risk for diabetes (prediabetes). Fasting plasma glucose results greater than or equal to 126 mg/dL meet the criteria for diagnosis of diabetes. In the absence of unequivocal hyperglycemia, results should be confirmed by repeat testing. In a patient with classic symptoms of hyperglycemia or hyperglycemic crisis, random plasma glucose results greater than or equal to 200 mg/dL meet the criteria for diagnosis of diabetes. Reference: Standards of Medical Care in Diabetes 2016, [place] Diabetes Association. Diabetes Care. 2016.39(Suppl 1). LAB BUN 9-24 mg/dL BUN 13 LAB CRET 0.73-1.22 mg/dL Creatinine 1.02 LAB NA 136-144 mmol/L Sodium 139 LAB K 3.7-5.1 mmol/L Potassium 4.0 LAB CL 97-105 mmol/L Chloride 102 LAB CO2 22-30 mmol/L CO2 24 LAB AGAP 9-18 mmol/L Anion Gap 13 LAB ALT 10-54 U/L ALT 50 LAB GFRAA eGFR- Amer. >60 LAB GFRNAA . eGFR-All Other Races >60 Result Comment: eGFR (Estimated GFR) Units of measure: mL/min/1.73 meters squared eGFR is derived from the reexpressed MDRD Study equation using the following parameters: serum creatinine, age, gender and race. The creatinine assay has been calibrated to be traceable to IDMS. An eGFR <60 mL/min/1.73m2 for >3 months is consistent with chronic kidney disease. Refer to KDOQI guidelines for clinical interpretation. In patients with unstable renal function, e.g. those with acute kidney injury, the eGFR may not accurately reflect actual GFR. Performed By: #### CBCDIF, VPA, CMP, OXCARB #### [facility] [address] [place], [place] [address] OXCARBAZEPINE Collected: 12/22/2017 Status: F Source: [place] 10:06 AM [facility] REPOSITORY TYPE CODE TESTS RESULT OUT OF RANGE REFERENCE UNITS LAB 10HCAR 3.0-35.0 ug/mL 15.2 10Hydroxycar bazepine Result Comment: This test was developed and its performance characteristics determined by [facility]'s Jaciel R[facility] [place] ([facility]). It has not been cleared or approved by the FDA. -[facility] is regulated under CLIA as qualified to perform high-complexity testing. This test is used for clinical purposes. It should not be regarded as investigational or for research. Performed By: #### CBCDIF, VPA, CMP, OXCARB #### [facility] [address] [place], [place] [address] PROGRESS Observed: 12/21/2017 Status: COMPLETED Source: [place] 2:29 PM [facility] REPOSITORY HNO ID: [id number] Author: Janis Mojica(Mary) Service: (none) Author Type: Physician Blueprinter Type: Progress Notes Filed: 12/21/2017 3:13 PM Note Text: Chief Complaint Patient presents with: Weight Problem: patient is here for weight problem; has been dx epilepsy; HPI Mary Lei is a 32 year old male who presents here today for Above Complaints.. Patient has not been seen by FM since 2014. Recently dx with epilepsy and is following with epilepsy center. He has made some changes with diet and exercises. Reports he continues to gain weight. Last 6 Encounter Wt Readings: Date: Wt: 12/21/2017 129.3 kg (285 lb) 05/12/2016 126.1 kg (278 lb) 05/04/2016 120.4 kg (265 lb 8 oz) 04/13/2016 123 kg (271 lb 1.9 oz) 09/07/2015 120.2 kg (265 lb) 05/20/2015 122 kg (269 lb) No known family history of thyroid disease Paternal grandfather with diabetes. Reports daytime fatigue SO reports snoring and has witnessed apnea episodes. States worse on his back. Lymph node behind left ear that comes and goes. No significant changes in the past 3 years. States he saw a ENT in regards to this (?) Denies chest pain, shortness of breath, n/v/d, constipation, headaches, n/t Past medical history, appointments, medications, allergies reviewed. Previous Medical History PAST MEDICAL HISTORY Diagnosis Date - Joint laxity of left knee since childhood per patient - Thoracic back pain - Tobacco abuse Previous Surgical History PAST SURGICAL HISTORY Procedure Laterality Date - URETHRAL DILATION, MALE as a child Family History FAMILY HISTORY Problem Relation Age of Onset - cancer [Other] [OTHER] Maternal Grandmother breast mets to bone - Skin Cancer Maternal Grandfather great - unknown [Other] [OTHER] Father UNKNOWN - pancreatic cancer [Other] [OTHER] Paternal Grandfather tobacco abuse, ETOH use - bladder cancer [Other] [OTHER] Paternal Grandfather - COPD Paternal Grandfather Patient Allergies ALLERGIES Allergen Reactions - Penicillins Anaphylaxis - Sulfa (Sulfonamide * Unknown Current Medications Current Outpatient Prescriptions on File Prior to Visit: OXcarbazepine (TRILEPTAL) 300 mg tablet Take 2 tablets by mouth twice daily. albuterol HFA (VENTOLIN HFA) 90 mcg/actuation inhaler Inhale 2 Puffs as instructed every 4 hours as needed for Wheezing/Shortness of Breath. NAPROXEN ORAL Take by mouth. cyclobenzaprine (FLEXERIL) 10 mg tablet Take 1 tablet by mouth three times daily as needed for Muscle Spasm. diclofenac, EC, (VOLTAREN) 75 mg EC tablet Take 1 tablet by mouth twice daily. For pain/inflammation. Take with food. No current facility-administered medications on file prior to visit. Social History Social History Marital status: Single Spouse name: Years of education: Number of children: Social History Main Topics Smoking status: Current Every Day Smoker Packs/day: 0.00 Years: 0.00 Types: Cigarettes Smokeless tobacco: Never Used Comment: E cigarette Alcohol use: Yes Comment: rare Drug use: No Sexual activity: Yes Partners with: Female Review of Symptoms REVIEW OF SYSTEMS GENERAL: Fatigue. No weight loss, malaise or fevers NECK: Negative for lumps, goiter, pain and significant neck swelling RESPIRATORY: Negative for cough, hemoptysis, wheezing, COPD, dyspnea or shortness of breath CARDIOVASCULAR: Negative for chest pain, leg swelling, CHF or palpitations GI: No nausea, vomiting, or diarrhea, No heartburn or reflux symptoms and Constipation : No history of dysuria, frequency or incontinence HEMATOLOGY/LYMPHOLOGY: Negative for prolonged bleeding, bruising easily or swollen nodes ENDOCRINE: Negative for cold or heat intolerance, polyuria, polydipsia and goiter NEURO: No history of headaches, syncope, paralysis, seizures or tremors EXAM: BP 118/88 Pulse 86 Resp 14 Ht 180.3 cm (5' 11) Wt 129.3 kg (285 lb) BMI 39.75 kg/m? General Appearance: Well appearing, alert, in no acute distress, well-hydrated, well nourished..obese Eyes: Anicteric sclera. Pupils are equally round and reactive to light. Extraocular movements are intact. . Ears: External ears normal, canals clear, TMs pearly roman. Oropharynx: Lips, mucosa, and tongue normal, teeth and gums normal, oropharynx normal. Neck: Supple, no adenopathy; thyroid symmetric, normal size, no bruits. Lungs: Lungs clear to auscultation. No wheezing, rhonchi, rales. Heart: RRR without murmur, gallop, or rubs. No ectopy. Extremities: No deformities, edema, skin discoloration Peripheral Pulses: Normal. Lymph Nodes: post auricular lymph node. Non tender.. Health Maintenance List DTAP,TDAP,TD(1 - Tdap) due on 01/06/2004 ONE PNEUMOVAX PRIOR TO AGE 65 due on 01/06/2004 INFLUENZA(Season Ended) due on 04/14/[address] NECK W IVCON 04/08/15 IMPRESSION: No enlarged lymph nodes by size criteria. Elongated bilateral styloid processes. ?This is due to normal anatomic variation but if the patient has neck pain, this can be seen with Navajo syndrome. ASSESSMENT/PLAN: 1. Obesity, Class II, BMI 35-39.9 - ICD9: 278.00, ICD10: E66.9 (primary diagnosis) Discussed calories in vs calories out. Will check for metabolic or thyroid disorderes Suspect added factor of ELIEL - CBC + DIFF - COMP METABOLIC PANEL - HGB A1C - LIPID PANEL BASIC - POLYSOMNOGRAM (PSG)/HOME SLEEP APNEA TESTING (HSAT) 2. Fatigue, unspecified type - ICD9: 780.79, ICD10: R53.83 Suspect ELIEL - COMP METABOLIC PANEL - POLYSOMNOGRAM (PSG)/HOME SLEEP APNEA TESTING (HSAT) 3. Snoring - ICD9: 786.09, ICD10: R06.83 Check - POLYSOMNOGRAM (PSG)/HOME SLEEP APNEA TESTING (HSAT) 4. Witnessed apneic spells - ICD9: 786.03, ICD10: R06.81 Check - POLYSOMNOGRAM (PSG)/HOME SLEEP APNEA TESTING (HSAT) 5. Postauricular adenopathy - ICD9: 785.6, ICD10: R59.[address] without clinical significance. Will continue to monitor 6. Screening for lipid disorders - ICD9: V77.91, ICD10: Z13.220 Check - LIPID PANEL BASIC 7. Screening for diabetes mellitus - ICD9: V77.1, ICD10: Z13.1 Check. - COMP METABOLIC PANEL - HGB A1C Patient is to re-establish care with a PCP Follow up once sleep study and labs are completed. Time with patient face to face was 25 min JANIS MOJICA PA-C CNOV Observed: 12/21/2017 Status: COMPLETED Source: [place] 2:20 PM [facility] RE[facility]ORY [facility] MARY LEI ([id number]) 1985 M Date Time Provider Department 12/21/17 2:20 PM JAYME MOJICA) [facility] During your visit today, we recorded the following information about you: Pulse Respiration Blood pressure Weight 86/minute 14/minute 118/88 129.3 kg Height 1.803 m Jayme Mojica) 12/21/2017 3:13 PM Signed Chief Complaint Patient presents with: Weight Problem: patient is here for weight problem; has been dx epilepsy; HPI Mary R Annymarilu is a 32 year old male who presents here today for Above Complaints.. Patient has not been seen by FM since 2014. Recently dx with epilepsy and is following with epilepsy center. He has made some changes with diet and exercises. Reports he continues to gain weight. Last 6 Encounter Wt Readings: Date: Wt: 12/21/2017 129.3 kg (285 lb) 05/12/2016 126.1 kg (278 lb) 05/04/2016 120.4 kg (265 lb 8 oz) 04/13/2016 123 kg (271 lb 1.9 oz) 09/07/2015 120.2 kg (265 lb) 05/20/2015 122 kg (269 lb) No known family history of thyroid disease Paternal grandfather with diabetes. Reports daytime fatigue SO reports snoring and has witnessed apnea episodes. States worse on his back. Lymph node behind left ear that comes and goes. No significant changes in the past 3 years. States he saw a ENT in regards to this (?) Denies chest pain, shortness of breath, n/v/d, constipation, headaches, n/t Past medical history, appointments, medications, allergies reviewed. Previous Medical History PAST MEDICAL HISTORY Diagnosis Date - Joint laxity of left knee since childhood per patient - Thoracic back pain - Tobacco abuse Previous Surgical History PAST SURGICAL HISTORY Procedure Laterality Date - URETHRAL DILATION, MALE as a child Family History FAMILY HISTORY Problem Relation Age of Onset - cancer [Other] [OTHER] Maternal Grandmother breast mets to bone - Skin Cancer Maternal Grandfather great - unknown [Other] [OTHER] Father UNKNOWN - pancreatic cancer [Other] [OTHER] Paternal Grandfather tobacco abuse, ETOH use - bladder cancer [Other] [OTHER] Paternal Grandfather - COPD Paternal Grandfather Patient Allergies ALLERGIES Allergen Reactions - Penicillins Anaphylaxis - Sulfa (Sulfonamide * Unknown Current Medications Current Outpatient Prescriptions on File Prior to Visit: OXcarbazepine (TRILEPTAL) 300 mg tablet Take 2 tablets by mouth twice daily. albuterol HFA (VENTOLIN HFA) 90 mcg/actuation inhaler Inhale 2 Puffs as instructed every 4 hours as needed for Wheezing/Shortness of Breath. NAPROXEN ORAL Take by mouth. cyclobenzaprine (FLEXERIL) 10 mg tablet Take 1 tablet by mouth three times daily as needed for Muscle Spasm. diclofenac, EC, (VOLTAREN) 75 mg EC tablet Take 1 tablet by mouth twice daily. For pain/inflammation. Take with food. No current facility-administered medications on file prior to visit. Social History Social History Marital status: Single Spouse name: Years of education: Number of children: Social History Main Topics Smoking status: Current Every Day Smoker Packs/day: 0.00 Years: 0.00 Types: Cigarettes Smokeless tobacco: Never Used Comment: E cigarette Alcohol use: Yes Comment: rare Drug use: No Sexual activity: Yes Partners with: Female Review of Symptoms REVIEW OF SYSTEMS GENERAL: Fatigue. No weight loss, malaise or fevers NECK: Negative for lumps, goiter, pain and significant neck swelling RESPIRATORY: Negative for cough, hemoptysis, wheezing, COPD, dyspnea or shortness of breath CARDIOVASCULAR: Negative for chest pain, leg swelling, CHF or palpitations GI: No nausea, vomiting, or diarrhea, No heartburn or reflux symptoms and Constipation : No history of dysuria, frequency or incontinence HEMATOLOGY/LYMPHOLOGY: Negative for prolonged bleeding, bruising easily or swollen nodes ENDOCRINE: Negative for cold or heat intolerance, polyuria, polydipsia and goiter NEURO: No history of headaches, syncope, paralysis, seizures or tremors EXAM: BP 118/88 Pulse 86 Resp 14 Ht 180.3 cm (5' 11) Wt 129.3 kg (285 lb) BMI 39.75 kg/m? General Appearance: Well appearing, alert, in no acute distress, well-hydrated, well nourished..obese Eyes: Anicteric sclera. Pupils are equally round and reactive to light. Extraocular movements are intact. . Ears: External ears normal, canals clear, TMs pearly roman. Oropharynx: Lips, mucosa, and tongue normal, teeth and gums normal, oropharynx normal. Neck: Supple, no adenopathy; thyroid symmetric, normal size, no bruits. Lungs: Lungs clear to auscultation. No wheezing, rhonchi, rales. Heart: RRR without murmur, gallop, or rubs. No ectopy. Extremities: No deformities, edema, skin discoloration Peripheral Pulses: Normal. Lymph Nodes: post auricular lymph node. Non tender.. Health Maintenance List DTAP,TDAP,TD(1 - Tdap) due on 01/06/2004 ONE PNEUMOVAX PRIOR TO AGE 65 due on 01/06/2004 INFLUENZA(Season Ended) due on 04/14/[address] NECK W IVCON 04/08/15 IMPRESSION: No enlarged lymph nodes by size criteria. Elongated bilateral styloid processes. ?This is due to normal anatomic variation but if the patient has neck pain, this can be seen with Navajo syndrome. ASSESSMENT/PLAN: 1. Obesity, Class II, BMI 35-39.9 - ICD9: 278.00, ICD10: E66.9 (primary diagnosis) Discussed calories in vs calories out. Will check for metabolic or thyroid disorderes Suspect added factor of ELIEL - CBC + DIFF - COMP METABOLIC PANEL - HGB A1C - LIPID PANEL BASIC - POLYSOMNOGRAM (PSG)/HOME SLEEP APNEA TESTING (HSAT) 2. Fatigue, unspecified type - ICD9: 780.79, ICD10: R53.83 Suspect ELIEL - COMP METABOLIC PANEL - POLYSOMNOGRAM (PSG)/HOME SLEEP APNEA TESTING (HSAT) 3. Snoring - ICD9: 786.09, ICD10: R06.83 Check - POLYSOMNOGRAM (PSG)/HOME SLEEP APNEA TESTING (HSAT) 4. Witnessed apneic spells - ICD9: 786.03, ICD10: R06.81 Check - POLYSOMNOGRAM (PSG)/HOME SLEEP APNEA TESTING (HSAT) 5. Postauricular adenopathy - ICD9: 785.6, ICD10: R59.[address] without clinical significance. Will continue to monitor 6. Screening for lipid disorders - ICD9: V77.91, ICD10: Z13.220 Check - LIPID PANEL BASIC 7. Screening for diabetes mellitus - ICD9: V77.1, ICD10: Z13.1 Check. - COMP METABOLIC PANEL - HGB A1C Patient is to re-establish care with a PCP Follow up once sleep study and labs are completed. Time with patient face to face was 25 min JANIS MOJICA PA-C Allergies As of Date: 12/21/2017 Noted Allergy Reaction PENICILLINS 12/30/2013 10 - Anaphylaxis SULFA (SULFONAMIDE ANTIBIOTICS) 12/30/2013 16 - Unknown Date Reviewed: 12/21/2017 Reviewed by: Janis Mojica(Mary) - Fully Assessed Reason for Visit: Weight Problem [121] Cmt: patient is here for weight problem; has been dx epilepsy; Primary Visit Diagnosis:Obesity, Class II, BMI 35-39.9 [E66.9] Other Visit Diagnoses:Fatigue, unspecified type [R53.83] Snoring [R06.83] Witnessed apneic spells [R06.81] Postauricular adenopathy [R59.0] Screening for lipid disorders [Z13.220] Screening for diabetes mellitus [Z13.1] Order(s):CBC + DIFF [SQCBCDIF] Order #: [id number] FUTURE COMP METABOLIC PANEL [SQCMP] Order #: [id number] FUTURE HGB A1C [GTHNI5Q] Order #: [id number] FUTURE LIPID PANEL BASIC [SQLIPB] Order #: [id number] FUTURE POLYSOMNOGRAM (PSG)/HOME SLEEP APNEA TESTING (HSAT) [7403566] Order #: [id number] FUTURE Prescriptions as of 12/21/2017 Sig: OXCARBAZEPINE 300 MG TABLET Take 2 tablets by mouth twice* Problem List As Of Date 12/21/2017 Noted Resolved Thoracic back pain [M54.6] INVALID FOR* Obesity (BMI 30.0-34.9) [E66.9] INVALID FOR* History of scoliosis [Z87.39] INVALID FOR* Localized swelling, mass and lump, neck [R22.1] INVALID FOR* Neck pain [M54.2] INVALID FOR* Convulsion (HCC) [R56.9] INVALID FOR* More... Medications Discontinued During This Encounter albuterol HFA (VENTOLIN HFA) 90 mcg/* 1 In* 0 09/07/2015 12/21/2017 Route: INHALATION Sig: Inhale 2 Puffs as instructed every 4 hours as needed for Wheezing/Shortness of Breath. Disc: Reason for discontinue is not on file. NAPROXEN ORAL 12/21/2017 Class: Historical Med Route: ORAL Sig: Take by mouth. Disc: Reason for discontinue is not on file. cyclobenzaprine (FLEXERIL) 10 mg tab* 15 t* 0 10/08/2014 12/21/2017 Route: ORAL Sig: Take 1 tablet by mouth three times daily as needed for Muscle Spasm. Disc: Reason for discontinue is not on file. diclofenac, EC, (VOLTAREN) 75 mg EC * 60 t* 2 05/28/2014 12/21/2017 Route: ORAL Sig: Take 1 tablet by mouth twice daily. For pain/inflammation. Take with food. Disc: Reason for discontinue is not on file. Follow-up and Disposition History Recorded Encounter Status:Closed by JANIS JARQUIN on 12/21/17 PROGRESS Observed: 11/17/2017 Status: COMPLETED Source: [place] 8:55 AM [facility] REPOSITORY HNO ID: [id number] Author: Julisa Maldonado [facility] Service: (none) Author Type: (none) Type: Progress Notes Filed: 11/17/2017 8:56 AM Note Text: Letter mailed to patient. Dr. Avina removed as pcp since attempted to contact and she hasn't seen patient since 2013. PROGRESS Observed: 11/17/2017 Status: COMPLETED Source: [place] 8:53 AM [facility] REPOSITORY HNO ID: [id number] Author: Julisa Maldonado Cma Service: (none) Author Type: (none) Type: Progress Notes Filed: 11/17/2017 8:56 AM Note Text: Left detailed message for patient to return call #[phone]. 3rd attempt Mychart message read. Will send letter. PROGRESS Observed: 11/15/2017 Status: COMPLETED Source: [place] 10:11 AM [facility] REPOSITORY HNO ID: [id number] Author: Julisa Maldonado Producer Service: (none) Author Type: (none) Type: Progress Notes Filed: 11/17/2017 8:56 AM Note Text: Left detailed message for patient to return call #[phone] PROGRESS Observed: 11/10/2017 Status: COMPLETED Source: [place] 10:12 AM [facility] REPOSITORY HNO ID: [id number] Author: uJlisa Maldonado Producer Service: (none) Author Type: (none) Type: Progress Notes Filed: 11/17/2017 8:56 AM Note Text: Sent PCP clarification letter via [employer]. PROGRESS Observed: 11/10/2017 Status: COMPLETED Source: [place] 10:09 AM [facility] REPOSITORY HNO ID: [id number] Author: Julisa Maldonado Cma Service: (none) Author Type: (none) Type: Progress Notes Filed: 11/17/2017 8:56 AM Note Text: PHMA TEAMLET DOCUMENTATION Provider Action/FYI: PSR Action/FYI: Teamlet has identified patient by name and date of . Team: Darryl Cazares Eva, Myself ? Last Office Visit:Visit date not found ? Next Office Visit: Visit date not found ? Last BP/Labs: Blood Pressure: Last 3 Encounter BP Readings: Date: BP: 08/28/2017 141/92 05/12/2016 139/89 05/04/2016 132/84 Lipids: Cholesterol, Total (mg/dL) Date Value 04/13/2016 190 HDL Cholesterol (mg/dL) Date Value 04/13/2016 48 LDL Cholesterol (mg/dL) Date Value 04/13/2016 125 Triglyceride (mg/dL) Date Value 04/13/2016 86 HGB A1C: No results found for: HBA1C TSH: TSH (uU/mL) Date Value 04/13/2016 1.630 ) Care Gap: Not seen by PCP since 2013 Plan: ? Confirm PCP / Status ? Type of appointment needed: Physical next available Labs, HM and Immunization: Health Maintenance Due: ONE PNEUMOVAX PRIOR TO AGE 65 due on 01/06/2004 TETANUS due on 05/13/2010 INFLUENZA(1) due on 04/14/2017 Julisa Maldonado Cma CNPTOUTREACH Observed: 11/10/2017 Status: COMPLETED Source: [place] 12:00 AM [facility] REPOSITORY Patient Outreach ([facility]) MARY LEI ([id number]) 1985 M Date Time Provider Department 11/10/17 JULISA MALDONADO ([facility]) [facility] During your visit today, we recorded the following information about you: Julisa Maldonado Producer 11/17/2017 8:56 AM Signed PHMA TEAMLET DOCUMENTATION Provider Action/FYI: PSR Action/FYI: Teamlet has identified patient by name and date of . Team: Darryl Cazares Eva, Myself ? Last Office Visit:Visit date not found ? Next Office Visit: Visit date not found ? Last BP/Labs: Blood Pressure: Last 3 Encounter BP Readings: Date: BP: 08/28/2017 141/92 05/12/2016 139/89 05/04/2016 132/84 Lipids: Cholesterol, Total (mg/dL) Date Value 04/13/2016 190 HDL Cholesterol (mg/dL) Date Value 04/13/2016 48 LDL Cholesterol (mg/dL) Date Value 04/13/2016 125 Triglyceride (mg/dL) Date Value 04/13/2016 86 HGB A1C: No results found for: HBA1C TSH: TSH (uU/mL) Date Value 04/13/2016 1.630 ) Care Gap: Not seen by PCP since 2013 Plan: ? Confirm PCP / Status ? Type of appointment needed: Physical next available Labs, HM and Immunization: Health Maintenance Due: ONE PNEUMOVAX PRIOR TO AGE 65 due on 01/06/2004 TETANUS due on 05/13/2010 INFLUENZA(1) due on 04/14/2017 Julisa Maldonado Producer Julisa Maldonado [facility] 11/17/2017 8:56 AM Signed Sent PCP clarification letter via [employer]. Julisa Maldonado Cma 11/17/2017 8:56 AM Signed Left detailed message for patient to return call #[phone] Julisa Maldonado [facility] 11/17/2017 8:56 AM Signed Left detailed message for patient to return call #[phone]. 3rd attempt [employer] message read. Will send letter. Julisa Maldonado Cma 11/17/2017 8:56 AM Signed Letter mailed to patient. Dr. Avina removed as pcp since attempted to contact and she hasn't seen patient since 2013. Allergies As of Date: 11/10/2017 Noted Allergy Reaction PENICILLINS 12/30/2013 10 - Anaphylaxis SULFA (SULFONAMIDE ANTIBIOTICS) 12/30/2013 16 - Unknown Date Reviewed: 08/28/2017 [facility]: [facility] [place] - Fully Assessed Reason for Visit: PHMA/Care Gap Outreach [5150] Prescriptions as of 11/10/2017 Sig: X DIVALPROEX 250 MG TABLET,SANJUANA* Take 1 tablet in the morning * ALBUTEROL SULFATE HFA 90 MCG/* Inhale 2 Puffs as instructed * NAPROXEN ORAL Take by mouth. CYCLOBENZAPRINE 10 MG TABLET Take 1 tablet by mouth three * DICLOFENAC SODIUM 75 MG TABLE* Take 1 tablet by mouth twice * Problem List As Of Date 11/10/2017 Noted Resolved Thoracic back pain [M54.6] INVALID FOR* Obesity (BMI 30.0-34.9) [E66.9] INVALID FOR* History of scoliosis [Z87.39] INVALID FOR* Localized swelling, mass and lump, neck [R22.1] INVALID FOR* Neck pain [M54.2] INVALID FOR* Convulsion (HCC) [R56.9] INVALID FOR* More... Letter Text Jayme Avina DO Department of Family Medicine [address] [place] [address] Mary Lei [id number] [address] [place] [id number] 11/17/2017 Dear Mr.Bourgeois: Our records indicate that Jayme Avina DO is listed as your Primary Care Physician. It has been a period of time since you were seen in our office and we hope this finds you well. If we continue to be your primary care doctor, please consider making an appointment to re-establish care, update your health records, and discuss your health issues. If we no longer provide care for you, please let us know so that we can update our records. The main telephone number is [phone]. Best Regards, The office staff of Jayme Avina DO Encounter Status:Closed by JULISA MALDONADO CMA on 11/17/17 ALLERGIES ALLERGIES DATE TYPE / NAME / CODE REACTION SEVERITY SOURCE CODE 08/23/2017 Drug Penicillins/F0010 Anaphylaxis Unknown [facility] Allergy/41 51000(RXNORM) Community 7431254( Hospital OMED CT) Repository 08/23/2017 Drug Sulfa Unknown Unknown [place] Allergy/41 (Sulfonamide Community 4202420( Antibiotics)/[facility]) 585778(RXNORM) Repository 12/30/2013 Drug PENICILLINS ANAPHYLAXIS [facility] Class/[address] [place] [address](SNOM Repository ED CT) 12/30/2013 Drug SULFA UNKNOWN [facility] Class/4195 (SULFONAMIDE [place] [address](SNOM ANTIBIOTICS) Repository ED CT) 12/30/2013 Drug PENICILLINS ANAPHYLAXIS [facility] Class/4195 [address] [place] [address](SNOM Repository ED CT) 12/30/2013 Drug SULFA UNKNOWN [facility] Class/4195 (SULFONAMIDE [place] [address](SNOM ANTIBIOTICS) Repository ED CT) ENCOUNTERS ENCOUNTERS ADMIT/DISCHARGE ACCOUNT ADMITTING ENCOUNTER LOCATION SOURCE NUMBER CLASS 07/30/2018 [id number] Ambulatory [facility] ing:CT Repository 07/30/2018 [id number] [facility] ing: Repository 07/06/2018/07/06/20 [id number] Ambulatory [address] [place] Repository 06/20/2018/06/21/20 [id number] Ambulatory [address] [place] Repository 05/10/2018/05/11/20 [id number] Ambulatory [address] [place] Repository 02/07/2018/02/09/20 [id number] Ambulatory [address] Repository 01/11/2018/01/16/20 [id number] Ambulatory [address] Repository 01/11/2018/01/12/20 [id number] Ambulatory [address] Repository 01/03/2018 [id number] Ambulatory [place] [facility] ing: Repository 01/02/2018/01/03/20 [id number] Ambulatory [address] Repository 12/22/2017 [id number] Ambulatory [facility] Repository 12/21/2017/12/23/19 [id number] Ambulatory [address] Repository PAYERS PAYERS ENCOUNTER GUARANTOR PAYER SUBSCRIBER SOURCE 07/30/2018 MARY R Primary MARY R [place] [id number] Insurance:CARESOURCEP BOURGEOISDOB: [facility] Number: [id number] [id number] Repository 35559Mbf: ([phone]) Date:2018-07-06P O [phone] () [address]ATTN: [place] [address]YV: 07/30/2018 Secondary NOT GIVENUNK [place] Insurance:SELF PAY [facility] Number: Effective Repository Date:2018-07-06 07/30/2018 MARY R Primary MARY R [place] [id number] Insurance:CARESOURCEP BOURGEOISDOB: [facility] Number: [id number], [place] [id number] Repository 8[address]Vqk: ([phone]) Date:2018-07-27P O [phone] () [address]ATTN: [place] [address]KA: 07/30/2018 Secondary NOT GIVENUNK [place] Insurance:SELF PAY [facility] Number: Effective Repository Date:2018-07-27 01/03/2018 MARY Primary MARY Navdeep [id number] Insurance:CARESOURCEP BOURGEOISDOB: [facility] Number: [id number], [place] [id number] Repository 93977Mvu: ([phone]) Date:2017-12-21P O [phone] () [address]ATTN: [place] [address]DJ: 01/03/2018 Secondary NOT GIVENUNK [facility]deep Insurance:SELF PAY [facility]: Effective Repository Date:2017-12-21
== END ==
PROVIDERS: Family Provider Student in an Organized Health Care Education/Training Program; PCP Student in an Organized Health Care Education/Training Program; Referring Provider Otolaryngology; Visit Provider Otolaryngology
DX: R22.1 Localized swelling, mass and lump, neck (principal)
CPT/HCPCS: 76536

== ENCOUNTER 2019-02-21 12:33 | Emergency (ER) | payer MEDICAID, SELFPAY ==
[2019-02-21 12:34] VITALS: BP 151/93; PULSE 105; RESP 18; TEMP 36.2; O2SAT 98; BMI 33.7
--- NOTE | 2019-02-21 12:53 | CT_ITS ---
STUDY: CT ABDOMEN AND PELVIS WITH CONTRAST REASON FOR EXAM: Male, 34 years old. Right lower quadrant pain and diarrhea. RADIATION DOSAGE (If Supplied By Facility): CTDIvol = ( 15.13 ) mGy, DLP = ( 1202.6 ) mGycm TECHNIQUE: Transaxial images were obtained from the dome of the diaphragm to the symphysis pubis with oral contrast. 100 IV/Oral Isovue 300 was administered. Sagittal and coronal images were reconstructed. Individualized dose optimization techniques were used for this CT. COMPARISON: None. FINDINGS: The visualized lung bases are unremarkable. The visualized portions of the heart are within normal limits. There is decreased attenuation of the liver consistent with steatosis. There are multiple small gallstones. There is mild splenomegaly. Normal pancreas. Normal bilateral adrenal glands. Normal right kidney. Normal left kidney. Normal visualized stomach. There is a 1.6 cm x 2.5 cm fluid-filled diverticulum in the second portion of the duodenum. There are multiple colonic diverticula consistent with diverticulosis. The appendix is visualized and appears normal. Small lymph nodes are seen in the mesenteric fat in the right lower quadrant is suggestive of a mesenteric adenitis. Normal abdominal aorta. Normal inferior vena cava. There is borderline retroperitoneal lymphadenopathy with enlarged nodes no greater than 10mm in the short axis diameter. Normal urinary bladder. Normal abdominal wall. Straightening of the normal lumbar lordosis. CT/Abdomen/Pelvis WITH Contrast IMPRESSION: Diffuse fatty infiltration of the liver. Mild splenomegaly. Scattered sigmoid diverticula. Diverticulum in the second portion of the duodenum. Mesenteric adenitis in the right lower quadrant. Electronically Signed: Armani Hamm, at 15:23 EDT , Service support ,
[2019-02-21 12:59] VITALS: BP 129/88; PULSE 94; RESP 15; O2SAT 97
[2019-02-21] MEDS: 0.9% Normal Saline 1,000 ML 1000 ML IV (13:15)
[2019-02-21 13:22] LABS: Absolute Lymphocyte Count 2.01 X10^3/ul (0.83-4.51); Absolute Neutrophil Count 3.4 X10^3/uL (2.0-7.7); Basophil# 0.01 X10^3/uL; Basophil% 0.2 % (0-1); Eosinophils% 1.7 % (0-5); Hematocrit 48.8 % (40-54); Hemoglobin 17.4 g/dl (13.0-16.5); Lymphocyte # 2.01 X10^3/ul (4.0); Lymphocyte % 33.6 % (19-41); Mean Corp Hgb Conc 35.7 g/gl (32-36); Mean Corpuscular Hgb 28.8 pg (27.0-32.0); Mean Corpuscular Volume 80.7 fL (80-94); Mean Platelet Vol. 9.5 fl (6.2-12.0); Monocyte# 0.48 X10^3/uL; Neutrophil # 3.37 X10^3/uL (2.7-7.7); Neutrophil % 56.3 % (47-70); Platelet Count 189 K/mm3 (150-450); RBC Distribution Width CV 12.5 % (11.6-14.6); RBC Distribution Width SD 36.7 fl (35.1-43.9); Red Blood Count 6.05 M/mm3 (4.6-6.2)
[2019-02-21 13:23] LABS: POSITIVE COUNT NO; POSITIVE DIFFERENTIAL NO; POSITIVE MORPHOLOGY NO
[2019-02-21 13:32] LABS: ALB/GLOB Ratio 1.1 RATIO (0.9-2.4); AST(SGOT) 21 U/L (15-37); Alanine Aminotransfer ALT/SGPT 40 U/L (16-61); Albumin, Serum 3.7 g/dL (3.2-5.0); Alkaline Phosphatase 74 U/L (45-117); Anion Gap 7 (5-15); BUN 12 mg/dL (7-18); BUN/Creat Ratio 11.1 RATIO (10-20); Calcium,Total 9.1 mg/dL (8.5-10.1); Chloride 106 mmol/L (98-107); Creatinine, Serum 1.08 mg/dL (0.70-1.30); EST Glomerular Filtration Rate 83 mL/min (>60); Est Glom Filt Rate - Afr Amer 101 mL/min (>60); Estimated Creatinine Clearance 105.78 ml/min; Globulin 3.5 g/dL (2.2-4.2); Glucose 100 mg/dL (74-106); Lipase 70 U/L (73-393); Potassium 3.5 mmol/L (3.5-5.1); Protein, Total 7.2 g/dL (6.4-8.2); Sodium Level 141 mmol/L (136-145)
[2019-02-21 13:53] VITALS: BP 129/88; PULSE 94; RESP 15; TEMP 36.2; O2SAT 97
[2019-02-21 14:34] LABS: Red Blood Cells-Urine 0 SEEN /hpf (0-5); Squamous Epithelial Cells - UA 0 SEEN /hpf (0-5)
[2019-02-21 14:35] LABS: Color, Urine Yellow (Yellow); Glucose, Dipstick Normal (Normal); Ketone-Dipstick Negative (Negative); Leukocyte Esterase-Dipstick 25 /ul (Negative); Nitrite-Dipstick Negative (Negative); Occult Blood-Urine Negative /ul (Negative); Protein-Dipstick 15 mg/dl (Negative); Specific Gravity, Urine 1.015 (1.002-1.030); Urine Bilirubin Dipstick Negative (Negative); Urine Clarity Clear (Clear); Urine Urobilinogen Normal (Normal)
[2019-02-21 14:45] LABS: Bacteria 1+ /hpf (None Seen); Mucous, Urine 1+ /hpf (<or=2+); White Blood Cells 0-5 SEEN /hpf (0-5)
--- NOTE | 2019-02-21 15:33 | ED.DCSUM_ITS ---
- ER Visit Summary Date of Service: 02/21/19 Chief Complaint: Pain History of Present Illness: The patient is a 34 M with right lower quadrant pain. Symptoms started yesterday. Associated with diarrhea. No other GI symptoms. No fever. No history of abdominal surgery. Physical Examination: Afebrile and vital signs unremarkable. Alert and oriented. No acute distress. Heart regular. Lungs clear. Abdomen tender in the right lower quadrant inferior to McBurney's point. Otherwise unremarkable. Skin appears normal. Test Results: Hemoglobin 17.4. CMP, lipase, urinalysis unremarkable. CT showed fatty liver and mild splenomegaly. He has diverticulosis without diverticulitis. He has mesenteric adenitis. Emergency Department Course and Treatment: Patient declined pain medicine. He was treated with IV fluids while awaiting results. His work-up was all fairly unremarkable. I believe his symptoms are from mesenteric adenitis. Patient was advised symptomatic control with pain medicine and nausea medicine as needed. Follow-up with primary care or return for any new or worsening issues. Treatment Plan: As above Disposition: Discharge Impression: 1. Right lower quadrant abdominal pain This note was generated with [employer] dictation software. It may contain incorrect words, spelling, and punctuation that were not noted in review of the chart prior to signing ED Disposition - Plan for ED Patient: Referrals: Jong Hutchison MD [Primary Care Provider] -
--- NOTE | 2019-02-21 15:35 | ED.DEP ---
ED Disposition - Plan for ED Patient: Instructions: Adenitis, Mesenteric Referrals: Jong Hutchison MD [Primary Care Provider] -
[2019-02-21 15:52] VITALS: BP 125/89; PULSE 91; RESP 16; O2SAT 98
== END 2019-02-21 15:53 | disposition home or self-care (01) ==
LOC: ED 13:27
PROVIDERS: Emergency Provider Emergency Medicine; Family Provider Family Medicine; PCP Family Medicine
DX: R10.31 Right lower quadrant pain (principal); I88.0 Nonspecific mesenteric lymphadenitis; K76.0 Fatty (change of) liver, not elsewhere classified; K57.90 Diverticulosis of intestine, part unspecified, without perforation or abscess without bleeding; R16.1 Splenomegaly, not elsewhere classified
CPT/HCPCS: 74177; 80053; 81001; 83690; 85025; 96360; 99283; J7030; Q9967; A4216

== ENCOUNTER 2019-06-03 09:00 | Emergency (ER) | payer MEDICAID, SELFPAY ==
[2019-06-03 09:01] VITALS: BP 127/79; PULSE 87; RESP 14; TEMP 37.1; O2SAT 98; BMI 34.3
--- NOTE | 2019-06-03 09:38 | ED.DCSUM_ITS ---
- ER Visit Summary Date of Service: 06/03/19 Chief Complaint: Migraine headache and dizzy History of Present Illness: The patient is a 34 M history of migraine headaches and seizure disorder. On antiseizure medications. Patient states he developed a typical migraine for him last evening around 11 PM. It was gradual onset. He denies any head trauma. He is on no blood thinners. denies any fever. And this morning he said he has room spinning or dizziness. No trouble moving his arms or legs. No visual change. No fever. He has had both a negative CT and MRI last 3 years. Physical Examination: Vital signs stable afebrile. Patient sitting in bed no acute distress. HEENT exam unremarkable. Dry reactive light extra motions are intact. No facial droop. Normal speech. TMs are normal. Canals are unremarkable. No signs of trauma to his face or scalp. Neck nontender. No meningismus. Able to touch chin to chest. Lungs clear to auscultation bilaterally. Heart regular rhythm no murmur. Abdomen soft nontender. Normal bowel sounds no peritoneal signs. Patient is moving all 4 extremities. They are neurovascular intact. 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 Dorsi plantarflexion intact. [id number] fingertip to nose within normal limits. Neurologic exam is normal. NIH score is 0. Test Results: Patient has had both CAT scan and MRI in the last several years that were negative. He has a normal neurologic exam. I do not feel he needs any imaging today. Emergency Department Course and Treatment: He has a history of migraine headaches and states this is typical for 1 of his migraine headaches for this type of discomfort. Treated with IV Toradol, IV Compazine, IV Benadryl and IV fluids. Then reassessed. Repeat exam at 11:06 AM patient is doing well. His symptoms have resolved he is feeling better. His exam remains normal. Treatment Plan: Rest. Tylenol and Motrin as needed. Return if worse. Or follow-up with his primary care physician. Disposition: Discharge Impression: Acute headache with a history of migraines This note was generated with [employer] dictation software. It may contain incorrect words, spelling, and punctuation that were not noted in review of the chart prior to signing ED Disposition - Plan for ED Patient: Referrals: Jong Hutchison MD [Primary Care Provider] -
[2019-06-03] MEDS: 0.9% Normal Saline 1,000 ML 1000 ML IV (09:56)
[2019-06-03] MEDS: DiphenhydrAMINE 50 MG/ML Syringe 25 MG IV (10:07)
[2019-06-03] MEDS: proCHLORPERazine 10 MG/2 ML Vial IV (10:08)
[2019-06-03] MEDS: Ketorolac 30 MG/ML Syringe IV (10:09)
[2019-06-03 11:00] VITALS: RESP 16
--- NOTE | 2019-06-03 11:07 | ED.DEP ---
ED Disposition - Plan for ED Patient: Disposition: Home or Assisted Living Instructions: HEADACHE, Unspecified Referrals: Jong Hutchison MD [Primary Care Provider] - 3-5 Days if not improving Additional Instructions: Fluids and rest. Follow-up with your doctor as needed. Return to ER feeling worse.
[2019-06-03 11:28] VITALS: BP 105/80; PULSE 69; RESP 16; O2SAT 100
--- NOTE | 2019-06-03 11:29 | ED.RN ---
REVIEWED D/C INSTRUCTIONS, FOLLOW UP CARE, AND S/S THAT WOULD WARRANT A RETURN TO THE ED WITH PT. PT VERBALIZED AN UNDERSTANDING AND DENIES FURTHER QUESTIONS FOR THIS RN. PT SKIN P/W/D, RESP EVEN AND UNLABORED, PT A&O X 3, NO DISTRESS NOTED. PT AMBULATED OUT OF ED, GAIT STEADY.
== END 2019-06-03 11:31 | disposition home or self-care (01) ==
PROVIDERS: Emergency Provider Emergency Medicine; Family Provider Family Medicine; PCP Family Medicine
DX: G43.909 Migraine, unspecified, not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, without status migrainosus (principal); Z72.0 Tobacco use
CPT/HCPCS: 96361; 96374; 96375; 99283; J7030

== ENCOUNTER 2019-07-04 09:48 | Emergency (ER) | payer MEDICAID, SELFPAY ==
[2019-07-04 09:49] VITALS: BP 116/79; PULSE 85; RESP 16; TEMP 36.6; O2SAT 97; BMI 33.7
[2019-07-04 09:52] VITALS: BP 116/79; PULSE 85; RESP 16; TEMP 36.6; O2SAT 97
--- NOTE | 2019-07-04 10:07 | ED.DCSUM_ITS ---
- ER Visit Summary Date of Service: 07/04/19 Chief Complaint: Shortness of breath History of Present Illness: The patient is a 34 M presenting with shortness of breath. Patient states this started this morning. He has had a cough productive of sputum. He denies fever or chills. He has had mild diarrhea. He denies sick contacts. He has a history of asthma but has not used an inhaler in several years. He does not currently have an inhaler. Denies recent steroid use. No history of hospitalizations. No PE/DVT risk factors. Denies chest pain or other complaints. Physical Examination: Vitals are stable. Patient is afebrile. Alert no acute distress. HEENT exam is unremarkable. Neck is supple. Lungs are mild expiratory wheezing bilaterally. Heart is regular rate and rhythm. Abdomen is soft nontender nondistended. Extremities are unremarkable. Skin is warm and dry. No focal neurologic deficit. Remainder of exam is unremarkable. Emergency Department Course and Treatment: Patient was given DuoNeb aerosol. CBC, chemistries unremarkable. D-dimer normal. Chest x-ray normal. Patient is resting comfortably on reevaluation. Pulse ox is 100% on room air. Patient is given albuterol MDI for home. He is given a short course of prednisone. Advised to follow-up with his primary care physician. Advised return if worsening complaints. Disposition: Discharge home Impression: Asthma exacerbation This note was generated with [employer] dictation software. It may contain incorrect words, spelling, and punctuation that were not noted in review of the chart prior to signing ED Disposition - Plan for ED Patient: Instructions: ASTHMA, Acute (Adult) Prescriptions: Prednisone [Deltasone] 40 mg PO DAILY #10 tab Prescription Printed Referrals: Jong Hutchison MD [Primary Care Provider] -
--- NOTE | 2019-07-04 10:10 | RAD_ITS ---
STUDY: X-RAY CHEST REASON FOR EXAM: Male, 34 years old. Cough. History of asthma. TECHNIQUE: Single AP portable view of the chest. COMPARISON: Comparison is made with prior study dated January 26, 2017. FINDINGS: The lungs are clear and expanded. There is no demonstrated pleural abnormality. Normal size heart. Normal mediastinum and adelina. Normal visualized pulmonary arteries. Normal visualized aortic arch and descending thoracic aorta. Normal visualized thoracic spine. Normal visualized ribs, clavicles, and shoulders. There is no demonstrated abnormality of the visualized soft tissue structures of the upper abdomen. RAD/Chest 1 View (Portable) IMPRESSION: Normal x-ray examination of the chest. Electronically Signed: Armani Hamm, at 10:29 EST , Service support ,
[2019-07-04 10:24] VITALS: RESP 20; O2SAT 96
[2019-07-04] MEDS: Ipratropium/Albuterol Sulfate 3 ML AMPUL.NEB INHALATION (10:24)
[2019-07-04 10:32] VITALS: PULSE 89; RESP 20
[2019-07-04 11:07] LABS: Absolute Lymphocyte Count 2.42 X10^3/uL (0.83-4.51); Absolute Neutrophil Count 3.2 X10^3/uL (2.0-7.7); Basophil# 0.03 X10^3/uL; Basophil% 0.5 % (0-1); Eosinophil# 0.12 X10^3/uL; Eosinophils% 1.9 % (0-5); Hemoglobin 17.1 g/dL (13.0-16.5); Lymphocyte # 2.42 X10^3/ul (4.0); Lymphocyte % 39.1 % (19-41); Mean Corp Hgb Conc 35.6 g/dL (32-36); Mean Corpuscular Hgb 30.1 pg (27.0-32.0); Mean Corpuscular Volume 84.5 fL (80-94); Mean Platelet Vol. 9.4 fl (6.2-12.0); Monocyte# 0.38 X10^3/uL; Monocyte% 6.1 % (0-10); NRBC Flagged by Analyzer 0 % (0-5); Neutrophil # 3.23 X10^3/uL (2.7-7.7); Neutrophil % 52.2 % (47-70); Platelet Count 157 K/mm3 (150-450); RBC Distribution Width CV 11.9 % (11.6-14.6); RBC Distribution Width SD 35.9 fl (35.1-43.9); Red Blood Count 5.68 M/mm3 (4.6-6.2); White Blood Count 6.2 K/mm3 (4.4-11.0)
[2019-07-04 11:27] LABS: Anion Gap 8 (5-15); BUN 14 mg/dL (7-18); BUN/Creat Ratio 14.6 RATIO (10-20); Chloride 106 mmol/L (98-107); Creatinine, Serum 0.96 mg/dL (0.70-1.30); EST Glomerular Filtration Rate 95 mL/min (>60); Est Glom Filt Rate - Afr Amer 115 mL/min (>60); Estimated Creatinine Clearance 115.48 ml/min; Glucose 101 mg/dL (74-106); Potassium 3.6 mmol/L (3.5-5.1); Sodium Level 141 mmol/L (136-145)
[2019-07-04 11:35] LABS: D-Dimer Quantitative (DVT/PE) 0.27 FEU/ug/m (0.27-0.49)
--- NOTE | 2019-07-04 11:49 | ED.DEP ---
ED Disposition - Plan for ED Patient: Instructions: ASTHMA, Acute (Adult) Prescriptions: Prednisone [Deltasone] 40 mg PO DAILY #10 tablet Referrals: Jong Hutchison MD [Primary Care Provider] -
[2019-07-04] MEDS: predniSONE 20 MG Tablet 60 MG PO (11:55)
[2019-07-04 11:57] VITALS: BP 130/93; PULSE 79; RESP 14; O2SAT 98
== END 2019-07-04 12:10 | disposition home or self-care (01) ==
LOC: ED 10:10
PROVIDERS: Emergency Provider Emergency Medicine; Family Provider Family Medicine; PCP Family Medicine
DX: J45.901 Unspecified asthma with (acute) exacerbation (principal); Z72.0 Tobacco use; R19.7 Diarrhea, unspecified
CPT/HCPCS: 71045; 80048; 85025; 85379; 94640; 99251; 99284; A4216; G0463

== ENCOUNTER 2019-08-15 12:18 | Emergency (ER) | payer MEDICAID, SELFPAY ==
[2019-08-15 12:20] VITALS: BP 132/93; PULSE 100; RESP 17; TEMP 37; O2SAT 97; BMI 34.5
[2019-08-15 14:06] VITALS: BP 147/84; PULSE 79; RESP 16; O2SAT 97
--- NOTE | 2019-08-15 14:24 | EKG12_ITS ---
Test Reason : DIZZINESS Blood Pressure : / mmHG Vent. Rate : 066 BPM Atrial Rate : 066 BPM P-R Int : 156 ms QRS Dur : 098 ms QT Int : 396 ms P-R-T Axes : 045 062 031 degrees QTc Int : 415 ms Normal sinus rhythm Normal ECG Confirmed by RODOLFO MAGUIRE, ZAYRA ([id number]), non linear editor ALEXUS CORONADO ([id number]) on 08/19/2019 12:28:57 PM Referred By: HAILEE Confirmed By:ZAYRA REYNOLDS MD
[2019-08-15 14:51] LABS: Absolute Lymphocyte Count 1.93 X10^3/uL (0.83-4.51); Absolute Neutrophil Count 3.6 X10^3/uL (2.0-7.7); Basophil# 0.01 X10^3/uL; Basophil% 0.2 % (0-1); Eosinophil# 0.15 X10^3/uL; Eosinophils% 2.4 % (0-5); Hematocrit 47.7 % (40-54); Hemoglobin 16.5 g/dL (13.0-16.5); Lymphocyte # 1.93 X10^3/ul (4.0); Lymphocyte % 31.4 % (19-41); Mean Corp Hgb Conc 34.6 g/dL (32-36); Mean Corpuscular Hgb 29.5 pg (27.0-32.0); Mean Corpuscular Volume 85.2 fL (80-94); Monocyte# 0.46 X10^3/uL; Monocyte% 7.5 % (0-10); NRBC Flagged by Analyzer 0 % (0-5); Neutrophil # 3.57 X10^3/uL (2.7-7.7); Neutrophil % 58.2 % (47-70); Platelet Count 187 K/mm3 (150-450); RBC Distribution Width CV 11.7 % (11.6-14.6); RBC Distribution Width SD 35.7 fl (35.1-43.9); White Blood Count 6.1 K/mm3 (4.4-11.0)
[2019-08-15 15:06] LABS: Anion Gap 5 (5-15); BUN 13 mg/dL (7-18); BUN/Creat Ratio 12.6 RATIO (10-20); Calcium,Total 9.1 mg/dL (8.5-10.1); Chloride 106 mmol/L (98-107); Creatinine, Serum 1.03 mg/dL (0.70-1.30); EST Glomerular Filtration Rate 88 mL/min (>60); Est Glom Filt Rate - Afr Amer 106 mL/min (>60); Estimated Creatinine Clearance 107.63 ml/min; Glucose 96 mg/dL (74-106); Sodium Level 141 mmol/L (136-145)
[2019-08-15 15:13] LABS: D-Dimer Quantitative (DVT/PE) < 0.27 FEU/ug/m (0.27-0.49)
[2019-08-15] MEDS: 0.9% Normal Saline 1,000 ML 1000 ML IV (15:20)
[2019-08-15] MEDS: Meclizine HCl 25 MG Tablet PO (15:35)
--- NOTE | 2019-08-15 16:36 | DCINST.ED_ITS ---
ED Disposition - Plan for ED Patient: Instructions: Benign Positional Vertigo Prescriptions: Meclizine HCl [Antivert] 25 mg PO TID PRN PRN #20 tab PRN Reason: Vertigo Transmission Status: Pending to [facility] [facility] Referrals: Jong Hutcihson MD [Primary Care Provider] -
--- NOTE | 2019-08-15 16:40 | ED.VISSUMM ---
- ER Visit Summary Date of Service: 08/15/19 Chief Complaint: Dizziness History of Present Illness: The patient is a 34 M presenting with dizziness. He describes a spinning sensation when he turns his head in different positions. He has associated nausea with no vomiting. He has had mild diarrhea. He denies headache. Denies syncope. Denies chest pain or shortness of breath. Denies fever or recent illness. Denies other complaints. Physical Examination: Vitals are stable. Patient is afebrile. Alert no acute distress. HEENT exam is unremarkable. Neck is supple. Lungs are clear and equal bilaterally. Heart is regular rate and rhythm. Abdomen is soft nontender nondistended. Extremities are unremarkable. Skin is warm and dry. No focal neurologic deficit. Remainder of exam is unremarkable. Emergency Department Course and Treatment: Patient was given IV fluids. EKG is sinus rate of 66 with no acute ischemic changes. CBC, chemistries unremarkable. Troponin is negative. D-dimer negative. He was given meclizine p.o. On reevaluation, patient is feeling improved. He is given prescription for meclizine. Advised to follow up with his primary care physician. Advised return to ED for worsening complaints. Disposition: Discharge home Impression: Benign positional vertigo This note was generated with [employer] dictation software. It may contain incorrect words, spelling, and punctuation that were not noted in review of the chart prior to signing ED Disposition - Plan for ED Patient: Instructions: Benign Positional Vertigo Prescriptions: Meclizine HCl [Antivert] 25 mg PO TID PRN PRN #20 tab PRN Reason: Vertigo Transmission Status: Received by [facility] [facility] Referrals: Jong Hutchison MD [Primary Care Provider] -
[2019-08-15 16:54] VITALS: BP 142/91; PULSE 84; RESP 18; O2SAT 99
== END 2019-08-15 16:55 | disposition home or self-care (01) ==
LOC: ED 14:25
PROVIDERS: Emergency Provider Emergency Medicine; Family Provider Family Medicine; PCP Family Medicine
DX: H81.10 Benign paroxysmal vertigo, unspecified ear (principal); R19.7 Diarrhea, unspecified; G40.909 Epilepsy, unspecified, not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, without status epilepticus; Z72.0 Tobacco use
CPT/HCPCS: 80048; 84484; 85025; 85379; 93005; 96360; 99285; J7030; A4216